=== PATIENT | female | born 1960 | race Caucasian/White ===

== ENCOUNTER → 2017-05-13 12:06 | Outpatient (CLI) | payer MEDICAID, SELFPAY ==
[2017-05-13 14:06] LABS: Hemoglobin A1c 5.2 % (4.2-6.3)
== END ==
PROVIDERS: Visit Provider Psychiatry & Neurology Neurology
DX: E11.9 Type 2 diabetes mellitus without complications (principal); R56.9 Unspecified convulsions
CPT/HCPCS: 36415; 83036

== ENCOUNTER → 2017-11-10 12:48 | Outpatient (CLI) | payer MEDICAID, SELFPAY ==
[2017-11-10 13:23] LABS: Absolute Lymphocyte Count 0.95 X10^3/ul (0.83-4.51); Basophil# 0.02 X10^3/uL; Basophil% 0.4 % (0-1); Eosinophils% 2.2 % (0-5); Hematocrit 40.8 % (37-47); Hemoglobin 13.5 g/dl (12.0-15.0); Lymphocyte # 0.95 X10^3/ul (4.0); Lymphocyte % 21.3 % (19-41); Mean Corp Hgb Conc 33.1 g/gl (32-36); Mean Corpuscular Hgb 29.7 pg (27.0-32.0); Mean Corpuscular Volume 89.9 fL (81-99); Mean Platelet Vol. 9.4 fl (6.2-12.0); Monocyte# 0.36 X10^3/uL; Monocyte% 8.1 % (0-10); Neutrophil # 3.04 X10^3/uL (2.7-7.7); Platelet Count 160 K/mm3 (150-450); RBC Distribution Width CV 13.7 % (11.6-14.6); Red Blood Count 4.54 M/mm3 (4.2-5.4); White Blood Count 4.5 K/mm3 (4.4-11.0)
[2017-11-10 13:24] LABS: POSITIVE COUNT NO; POSITIVE DIFFERENTIAL NO; POSITIVE MORPHOLOGY NO
[2017-11-10 13:53] LABS: ALB/GLOB Ratio 1.1 RATIO (0.9-2.4); AST(SGOT) 17 U/L (15-37); Alanine Aminotransfer ALT/SGPT 26 U/L (13-56); Albumin, Serum 3.9 g/dL (3.2-5.0); Alkaline Phosphatase 89 U/L (45-117); Anion Gap 9 (5-15); BUN 15 mg/dL (7-18); BUN/Creat Ratio 16.2 RATIO (10-20); Calcium,Total 9.1 mg/dL (8.5-10.1); Chloride 109 mmol/L (98-107); Creatinine, Serum 0.92 mg/dL (0.55-1.02); EST Glomerular Filtration Rate 66 mL/min (>60); Est Glom Filt Rate - Afr Amer 80 mL/min (>60); Globulin 3.4 g/dL (2.2-4.2); Glucose 121 mg/dL (74-106); Potassium 3.7 mmol/L (3.5-5.1); Protein, Total 7.3 g/dL (6.4-8.2); Sodium Level 143 mmol/L (136-145)
== END ==
PROVIDERS: Visit Provider Psychiatry & Neurology Neurology
DX: R56.9 Unspecified convulsions (principal)
CPT/HCPCS: 36415; 80053; 85025

== ENCOUNTER → 2018-02-16 12:53 | Outpatient (CLI) | payer MEDICAID, SELFPAY ==
[2018-02-19 11:43] LABS: Lamotrigine (Lamictal) Level 15.3 ug/mL (2.0-20.0)
== END ==
DX: G40.119 Localization-related (focal) (partial) symptomatic epilepsy and epileptic syndromes with simple partial seizures, intractable, without status epilepticus (principal)
CPT/HCPCS: 36415; 82542

== ENCOUNTER → 2018-03-18 15:57 | Outpatient (CLI) | payer MEDICAID, SELFPAY ==
[2017-07-24 09:52] VITALS: BMI 37.3
--- NOTE | 2018-03-18 16:01 | RAD_ITS ---
STUDY: X-RAY CHEST REASON FOR EXAM: Female, 58 years old. Persistent basilar TECHNIQUE: 2 view COMPARISON: None. FINDINGS: The lungs are clear and expanded. There is no demonstrated pleural abnormality. Normal size heart. Normal mediastinum and mariya. Normal visualized pulmonary arteries. Normal visualized aortic arch and descending thoracic aorta. Degenerative changes of the thoracic spine. Normal visualized ribs, clavicles, and shoulders. There is no demonstrated abnormality of the visualized soft tissue structures of the upper abdomen. RAD/Chest PA and Lateral IMPRESSION: Normal x-ray examination of the chest. No acute findings in the lungs Electronically Signed: Eric Kumar MD at 7:08 EST Tel , Service support ,
[2018-03-18 16:15] LABS: Mucous, Urine 0 SEEN /hpf (<or=2+); Red Blood Cells-Urine 0 SEEN /hpf (0-5)
[2018-03-18 17:54] LABS: Absolute Lymphocyte Count 1.09 X10^3/ul (0.83-4.51); Absolute Neutrophil Count 3.4 X10^3/uL (2.0-7.7); Basophil# 0.02 X10^3/uL; Basophil% 0.4 % (0-1); Hematocrit 41.4 % (37-47); Hemoglobin 13.8 g/dl (12.0-15.0); Lymphocyte # 1.09 X10^3/ul (4.0); Lymphocyte % 21.8 % (19-41); Mean Corp Hgb Conc 33.3 g/gl (32-36); Mean Corpuscular Hgb 29.6 pg (27.0-32.0); Mean Corpuscular Volume 88.8 fL (81-99); Monocyte# 0.36 X10^3/uL; Monocyte% 7.2 % (0-10); Neutrophil # 3.43 X10^3/uL (2.7-7.7); Neutrophil % 68.4 % (47-70); Platelet Count 172 K/mm3 (150-450); Red Blood Count 4.66 M/mm3 (4.2-5.4)
[2018-03-18 17:55] LABS: POSITIVE COUNT NO; POSITIVE DIFFERENTIAL NO; POSITIVE MORPHOLOGY NO
[2018-03-18 18:15] LABS: ALB/GLOB Ratio 1.1 RATIO (0.9-2.4); AST(SGOT) 16 U/L (15-37); Alanine Aminotransfer ALT/SGPT 33 U/L (13-56); Albumin, Serum 3.9 g/dL (3.2-5.0); Alkaline Phosphatase 100 U/L (45-117); Anion Gap 11 (5-15); BUN 11 mg/dL (7-18); BUN/Creat Ratio 13.5 RATIO (10-20); Calcium,Total 9.4 mg/dL (8.5-10.1); Chloride 108 mmol/L (98-107); Cholesterol 266 mg/dL (200); Creatinine, Serum 0.81 mg/dL (0.55-1.02); EST Glomerular Filtration Rate 76 mL/min (>60); Est Glom Filt Rate - Afr Amer 93 mL/min (>60); Globulin 3.5 g/dL (2.2-4.2); Glucose 94 mg/dL (74-106); High Density Lipoprotein 74 mg/dL; Potassium 3.8 mmol/L (3.5-5.1); Protein, Total 7.4 g/dL (6.4-8.2); Sodium Level 144 mmol/L (136-145); Thyroid Stim Hormone (TSH) 0.67 uIU/mL (0.358-3.74); Triglycerides 186 mg/dL; Very Low Density Lipoprotein 37 mg/dL (5-40)
[2018-03-18 18:26] LABS: Color, Urine Yellow (Yellow); Glucose, Dipstick Normal (Normal); Ketone-Dipstick Negative (Negative); Leukocyte Esterase-Dipstick 500 /ul (Negative); Nitrite-Dipstick Negative (Negative); Occult Blood-Urine 25 /ul (Negative); Protein-Dipstick Negative (Negative); Urine Bilirubin Dipstick Negative (Negative); Urine Clarity Cloudy (Clear); Urine Urobilinogen Normal (Normal)
[2018-03-18 18:57] LABS: Hyaline Cast 0-5 SEEN /lpf (0-5)
[2018-03-18 18:58] LABS: Bacteria 1+ /hpf (None Seen); Squamous Epithelial Cells - UA 5-10 SEEN /hpf (5-10); White Blood Cells 0-5 SEEN /hpf (0-5)
== END ==
PROVIDERS: Family Provider Family Medicine; PCP Family Medicine; Referring Provider Family Medicine; Visit Provider Family Medicine
DX: J45.30 Mild persistent asthma, uncomplicated (principal); E78.5 Hyperlipidemia, unspecified; E66.9 Obesity, unspecified; Z72.0 Tobacco use
CPT/HCPCS: 71046; 80053; 80061; 81001; 84443; 85025

== ENCOUNTER → 2018-03-24 06:35 | Outpatient (CLI) | payer MEDICAID, SELFPAY ==
[2017-07-24 09:52] VITALS: BMI 37.3
--- NOTE | 2018-03-24 15:31 | PFTCOMP ---
COMPLETE PULMONARY FUNCTION TEST INTERPRETATION Brief HPI: Patient is a 58 year old female, currently under the care of Dr. Rod, who presents to [facility] for complete pulmonary function tests secondary to diagnosis of asthma. Respiratory therapist reports good effort and reproducible results. Interpretation: Forced expiration spirometry shows no large airways obstructive ventilatory defect with an FEV1 of 95% predicted. There is no significant bronchodilator response by strict ATS criteria. Spirograms are of good quality and plateau normally. The respiratory flow volume loop shows a normal pattern. Lung volumes by body plethysmography show a normal total lung capacity at 4.61 L, 98% predicted. All other lung volumes are within normal limits. Diffusion capacity by carbon monoxide is normal at 106% predicted. The airway resistance is normal. No previous pulmonary function tests were available for review. Impression: These pulmonary function tests are within normal limits. Patient may have a bronchoprovocation study if quiescent asthma is a consideration.
== END ==
PROVIDERS: Family Provider Family Medicine; PCP Family Medicine
DX: J45.30 Mild persistent asthma, uncomplicated (principal)
CPT/HCPCS: 36415; 82542; 94060; 94726; 94729

== ENCOUNTER 2018-05-11 07:57 | Emergency (ER) | payer MEDICAID, SELFPAY ==
[2018-05-11 07:57] VITALS: BP 150/84; PULSE 105; RESP 20; TEMP 36.6; O2SAT 97; BMI 40.7
--- NOTE | 2018-05-11 08:15 | RAD_ITS ---
STUDY: X-RAY CHEST REASON FOR EXAM: Female, 58 years old. 3 month history of persistent cough and chest pain. TECHNIQUE: PA and lateral views of the chest. COMPARISON: Comparison is made with prior study dated March 18, 2018. FINDINGS: Hyperinflation. Scattered calcified granulomas. Stable mild increased markings at the lung bases suggestive mild bibasilar linear scarring. There is no demonstrated pleural abnormality. Normal size heart. Normal mediastinum and mariya. Normal visualized pulmonary arteries. Normal visualized aortic arch and descending thoracic aorta. There are diffuse degenerative changes of the visualized thoracic spine. Normal visualized ribs, clavicles, and shoulders. There is no demonstrated abnormality of the visualized soft tissue structures of the upper abdomen. RAD/Chest PA and Lateral IMPRESSION: Hyperinflation. Findings suggestive of mild degree of linear bibasilar scarring. Electronically Signed: Kevin Canales, at 8:51 EST , Service support ,
--- NOTE | 2018-05-11 08:16 | ED.VISSUMM ---
- ER Visit Summary Date of Service: 05/11/18 Chief Complaint: Cough History of Present Illness: The patient is a 58 F presenting with cough. Patient states she has had a cough for the past 3 months. This is keeping her awake at night. It is occasionally productive of sputum. She denies fever. She has shortness of breath associated with this. She denies chest pain. She has been seen by her primary care physician. She states that she was initially told that she had asthma and then later was told that she does not have asthma. She states that he wanted to prescribe her Prilosec and Flonase and she has refused both of these medications as she has tried them in the past with no relief. She states she has tried Tessalon Perles with no relief. She presents due to frustration and persistent cough. Physical Examination: Vitals are stable. Patient is afebrile. Alert no acute distress. HEENT exam is unremarkable. Neck is supple. Lungs are clear and equal bilaterally. Heart is regular rate and rhythm. Abdomen is soft nontender nondistended. Extremities are unremarkable. Skin is warm and dry. No focal neurologic deficit. Remainder of exam is unremarkable. Emergency Department Course and Treatment: Chest xray shows hyperinflation. Findings suggestive of mild degree of linear bibasilar scarring. She is given prescription for Delsym. She is advised to follow up with pulmonology for chronic cough. Advised return to ED if worsening complaints. Disposition: Discharge home Impression: Chronic cough This note was generated with [employer] dictation software. It may contain incorrect words, spelling, and punctuation that were not noted in review of the chart prior to signing ED Disposition - Plan for ED Patient: Instructions: ED URI Viral Prescriptions: Dextromethorphan Polistirex [Delsym] 30 mg PO BID PRN PRN 7 Days #1 [email or web address] PRN Reason: Cough Referrals: Myles Castillo DO [STAFF PHYSICIAN] - Houston Pascal MD [Primary Care Provider] -
--- NOTE | 2018-05-11 09:48 | ED.DEP ---
ED Disposition - Plan for ED Patient: Instructions: ED URI Viral Prescriptions: Dextromethorphan Polistirex [Delsym] 30 mg PO BID PRN PRN 7 Days #1 [email or web address] PRN Reason: Cough Referrals: Houston Pascal MD [Primary Care Provider] - Myles Castillo DO [STAFF PHYSICIAN] -
[2018-05-11 10:16] VITALS: PULSE 71; RESP 16; O2SAT 98
== END 2018-05-11 10:17 | disposition home or self-care (01) ==
LOC: ED 08:27
PROVIDERS: Emergency Provider Emergency Medicine; Family Provider Family Medicine; PCP Family Medicine
DX: R05 Cough (principal); G40.909 Epilepsy, unspecified, not intractable, without status epilepticus; Z79.899 Other long term (current) drug therapy
CPT/HCPCS: 71046; 99282

== ENCOUNTER → 2018-08-02 08:10 | Outpatient (CLI) | payer MEDICAID, SELFPAY ==
[2018-07-08 09:13] VITALS: BMI 41.8
--- NOTE | 2018-08-02 08:12 | CT_ITS ---
STUDY: CT CHEST WITHOUT CONTRAST REASON FOR EXAM: Female, 58 years old. Cough RADIATION DOSAGE (If Supplied By Facility): DLP = ( 689.75 ) mGycm TECHNIQUE: Transaxial imaging was performed without the administration of intravenous contrast material. Coronal and sagittal reformatted images were created. Individualized dose optimization techniques were used for this CT. COMPARISON: None FINDINGS: There are no pulmonary infiltrates or pleural effusions. There are no pulmonary nodules or masses. There is no pneumothorax. The heart and pericardium are within normal limits. There is no thoracic lymphadenopathy. There is no evidence of thoracic aortic aneurysm. There is decreased hepatic attenuation. There are no destructive osseous lesions. CT/Chest without Contrast IMPRESSION: No acute pathology in the chest. Fatty liver. Electronically Signed: Neo Mendez, at 21:49 EDT Tel , Service support ,
== END ==
PROVIDERS: Family Provider Family Medicine; PCP Family Medicine; Referring Provider Nurse Practitioner Acute Care; Visit Provider Nurse Practitioner Acute Care
DX: R05 Cough (principal)
CPT/HCPCS: 71250

== ENCOUNTER → 2018-08-03 09:25 | Outpatient (CLI) | payer MEDICAID, SELFPAY ==
[2018-07-08 09:13] VITALS: BMI 41.8
--- NOTE | 2018-08-04 08:28 | BRONCHALL ---
Bronchoprovocation Challenge - Bronchoprovocation Challenge Bronchoprovocation Challenge: INTRODUCTION: The patient is a 58-year-old female that presents for a methacholine challenge secondary to a diagnosis of chronic cough. Respiratory therapy reports no patient contraindications to testing. Of note, aerosolized albuterol was administered to the patient at the end of the test due to decreased air movement and faint audible wheezing noted. INTERPRETATION: Initial spirometry showed no evidence of a large airways obstructive ventilatory defect. Accordingly, the patient was given progressively increasing doses of methacholine in a standardized fashion. The largest change noted in the patient's FEV1 occurred at the highest dose level and was approximately 17%. This does not meet the threshold to be considered a positive test (20% decrease in FEV1). However, the patient was noted to have a positive response to the albuterol administered at the end of the challenge. IMPRESSION: While technically not a positive test, the patient was noted by the respiratory therapist to have decreased air movement and wheezing which responded favorably to the administration of albuterol. Negative methacholine challenge.
== END ==
PROVIDERS: Family Provider Family Medicine; PCP Family Medicine; Referring Provider Nurse Practitioner Acute Care; Visit Provider Nurse Practitioner Acute Care
DX: R05 Cough (principal)
CPT/HCPCS: 94070; 95070; J3490; J7674

== ENCOUNTER 2018-09-08 13:38 | Emergency (ER) | payer MEDICAID, SELFPAY ==
[2018-07-08 09:13] VITALS: BMI 41.8
[2018-09-08 13:38] VITALS: BP 121/73; PULSE 83; RESP 18; TEMP 36.6; O2SAT 96; BMI 41.4
[2018-09-08 13:44] VITALS: RESP 18
[2018-09-08] MEDS: Ondansetron ODT 4 MG Tablet 8 MG PO (14:12)
--- NOTE | 2018-09-08 14:30 | ED.VISSUMM ---
- ER Visit Summary Date of Service: 09/08/18 Chief Complaint: Nausea and vomiting History of Present Illness: The patient is a 58 F who complains of nausea and vomiting. She has had this for 1 week. She states vomiting multiple times per day. She denies any abdominal pain with this. No diarrhea or constipation. She denies urinary symptoms. She states that she cannot keep anything down. She has taken nothing for this at home. She denies any fevers. Physical Examination: Vital signs reviewed. HEENT exam unremarkable. Heart is regular rate and rhythm without murmurs. Lungs are clear to auscultation. Abdomen is soft and nontender. Extremities reveal no edema. Skin exam normal. Neurologic exam normal. Test Results: None performed Emergency Department Course and Treatment: The patient looks very well. Her vital signs are normal. I do not feel laboratory testing is necessary due to her lack of physical exam findings and normal vital signs. I gave her Zofran ODT. She is able to tolerate p.o. without any difficulties. Upon reevaluating her, it sounds like the patient is having some posttussive emesis due to a cough. She has been seeing pulmonology for this and has a follow-up appoint with him. I will give her Zofran ODT for home. She will follow-up with her PCP. Treatment Plan: [] Disposition: Discharge Impression: Vomiting This note was generated with [employer] dictation software. It may contain incorrect words, spelling, and punctuation that were not noted in review of the chart prior to signing ED Disposition - Plan for ED Patient: Referrals: Houston Pascal MD [Primary Care Provider] -
--- NOTE | 2018-09-08 14:32 | ED.DEP ---
ED Disposition - Plan for ED Patient: Disposition: Home or Assisted Living Instructions: VOMITING (5y-Adult) Prescriptions: Ondansetron [Zofran Odt] 4 mg PO Q8H PRN PRN #10 tab PRN Reason: Nausea Prescription Printed Referrals: Houston Pascal MD [Primary Care Provider] -
[2018-09-08 14:50] VITALS: BP 135/78; PULSE 97; RESP 18; O2SAT 95
== END 2018-09-08 14:51 | disposition home or self-care (01) ==
PROVIDERS: Emergency Provider Emergency Medicine; Family Provider Family Medicine; PCP Family Medicine
DX: R11.2 Nausea with vomiting, unspecified (principal); G40.909 Epilepsy, unspecified, not intractable, without status epilepticus; Z72.0 Tobacco use
CPT/HCPCS: 99283

== ENCOUNTER → 2019-01-14 12:46 | Outpatient (CLI) | payer MEDICARE, MEDICAID, SELFPAY ==
[2018-10-26 12:38] VITALS: BMI 40.4
--- NOTE | 2019-01-14 12:49 | BI_ITS ---
MAMMOGRAPHY - BILATERAL SCREENING REASON FOR EXAM: Female, 59 years old. Routine annual screening examination. PERTINENT HISTORY: Grandmother with breast cancer. Remote left excisional breast biopsy. TECHNIQUE: Digital bilateral breast tracey (3D mammographic acquisition) in the CC and MLO projections. 2-D mediolateral oblique (MLO) and craniocaudad (CC) views of both breasts were obtained. CAD: Full Field Digital Mammography with Computer Added Detection was performed. COMPARISON: Comparison is made with prior outside examination dated July 26, 2015 FINDINGS: Breast Composition: There are scattered areas of fibroglandular density. There are no dominant masses or suspicious calcifications. Benign appearing bilateral axillary lymph nodes. No other significant abnormalities are identified. There has been no significant change since the prior study. BI/SCREEN MAMM (CAD) W/TRACEY BILAT IMPRESSION: Stable bilateral screening mammogram. Yearly follow-up mammogram recommended. (A) ASSESSMENT CATEGORY: BIRADS Category 2: Benign. A letter regarding these results will be sent to the patient by the facility within 30 days. Approximately 10% of breast cancers are not detected by mammography. A normal mammogram should not delay biopsy of a clinically suspicious abnormality. [id number] Electronically Signed: Kevin Canales, at 8:23 EST , Service support ,
== END ==
PROVIDERS: Family Provider Family Medicine; PCP Family Medicine; Referring Provider Family Medicine; Visit Provider Family Medicine
DX: Z12.31 Encounter for screening mammogram for malignant neoplasm of breast (principal)
CPT/HCPCS: 77063; 77067

== ENCOUNTER → 2019-01-20 14:57 | Outpatient (CLI) | payer MEDICARE, MEDICAID, SELFPAY ==
[2018-10-26 12:38] VITALS: BMI 40.4
[2019-01-26 11:39] LABS: HPV Reflexed? NOT INDICATED
== END ==
PROVIDERS: Family Provider Family Medicine; PCP Family Medicine; Referring Provider Obstetrics & Gynecology; Visit Provider Obstetrics & Gynecology
DX: Z12.4 Encounter for screening for malignant neoplasm of cervix (principal)
CPT/HCPCS: 88175; G0145

== ENCOUNTER 2019-10-11 13:05 | Emergency (ER) | payer MEDICARE, MEDICAID, SELFPAY ==
[2018-10-26 12:38] VITALS: BMI 40.4
[2019-10-11 13:08] VITALS: BP 121/54; PULSE 59; RESP 16; TEMP 36.1; O2SAT 98; BMI 41.0
--- NOTE | 2019-10-11 14:04 | EKG12_ITS ---
Test Reason : Blood Pressure : / mmHG Vent. Rate : 063 BPM Atrial Rate : 063 BPM P-R Int : 176 ms QRS Dur : 088 ms QT Int : 422 ms P-R-T Axes : 036 075 049 degrees QTc Int : 431 ms Normal sinus rhythm Normal ECG Confirmed by ANA LAURA ROWELL ([id number]), acquisition editor GENEVIEVE EMERY ([id number] on 10/13/2019 11:16:04 AM Referred By: JUDITH Confirmed By:ANA LAURA ROWELL
--- NOTE | 2019-10-11 14:04 | CT_ITS ---
STUDY: CT ABDOMEN AND PELVIS WITH CONTRAST REASON FOR EXAM: Female, 59 years old. EPIGASTRIC PAIN, BACK PAIN, GERD, N/V, ASTHMA, POLYCYSTIC OVARIES, HLD, SZ RADIATION DOSAGE (If Supplied By Facility): CTDIvol = ( 13.75 ) mGy, DLP = ( 1185.56 ) mGycm TECHNIQUE: Transaxial images were obtained from the dome of the diaphragm to the symphysis pubis without oral contrast. 100 ML ISOVUE 300 was administered. Sagittal and coronal images were reconstructed. Individualized dose optimization techniques were used for this CT. COMPARISON: None. FINDINGS: Minimal increased markings at the lung bases suggestive of scarring. The visualized portions of the heart are within normal limits. There is decreased attenuation of the liver consistent with steatosis. Normal gallbladder and extrahepatic biliary system. Normal spleen. Normal pancreas. Normal bilateral adrenal glands. Normal right kidney. Punctate calcification in the midpole calyx of the left kidney. There is a small hiatal hernia. Normal small intestine. There are multiple colonic diverticula consistent with diverticulosis. The appendix is visualized and appears normal. There is diffuse atherosclerotic calcification of the abdominal aorta, without a demonstrated aneurysm. Normal inferior vena cava. Normal retroperitoneum. Normal urinary bladder. There is a right-sided inguinal hernia containing adipose tissue. There are degenerative changes of the visualized lumbar spine. CT/Abdomen/Pelvis W IV Cont ONLY IMPRESSION: Fatty infiltration of the liver. Sigmoid diverticulosis. Electronically Signed: Kevin Canales, at 15:47 EDT , Service support ,
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
[2019-10-11] MEDS: 0.9% Normal Saline 1,000 ML 1000 ML IV (14:29)
[2019-10-11 14:41] LABS: Absolute Lymphocyte Count 0.58 X10^3/uL (0.83-4.51); Absolute Neutrophil Count 8.5 X10^3/uL (2.0-7.7); Basophil# 0.03 X10^3/uL; Basophil% 0.3 % (0-1); Eosinophil# 0.01 X10^3/uL; Eosinophils% 0.1 % (0-5); Hematocrit 42.1 % (37-47); Hemoglobin 13.9 g/dL (12.0-15.0); Lymphocyte # 0.58 X10^3/ul (4.0); Lymphocyte % 6.1 % (19-41); Mean Corpuscular Volume 90.9 fL (81-99); Mean Platelet Vol. 9.3 fl (6.2-12.0); Monocyte# 0.36 X10^3/uL; Monocyte% 3.8 % (0-10); NRBC Flagged by Analyzer 0 % (0-5); Neutrophil # 8.45 X10^3/uL (2.7-7.7); Neutrophil % 89.2 % (47-70); POSITIVE DIFFERENTIAL YES; Platelet Count 191 K/mm3 (150-450); RBC Distribution Width CV 14.1 % (11.6-14.6); RBC Distribution Width SD 46.7 fl (35.1-43.9); Red Blood Count 4.63 M/mm3 (4.2-5.4); White Blood Count 9.5 K/mm3 (4.4-11.0)
[2019-10-11 14:43] LABS: Differential Indicated SCAN CRITERIA MET
[2019-10-11 14:59] LABS: ALB/GLOB Ratio 1.1 RATIO (0.9-2.4); AST(SGOT) 18 U/L (15-37); Alanine Aminotransfer ALT/SGPT 28 U/L (13-56); Albumin, Serum 3.8 g/dL (3.2-5.0); Alkaline Phosphatase 111 U/L (45-117); Anion Gap 5 (5-15); BUN 13 mg/dL (7-18); BUN/Creat Ratio 13.2 RATIO (10-20); Calcium,Total 9.2 mg/dL (8.5-10.1); Chloride 115 mmol/L (98-107); Creatinine, Serum 0.99 mg/dL (0.55-1.02); EST Glomerular Filtration Rate 61 mL/min (>60); Est Glom Filt Rate - Afr Amer 74 mL/min (>60); Estimated Creatinine Clearance 49.99 ml/min; Globulin 3.4 g/dL (2.2-4.2); Glucose 111 mg/dL (74-106); Lipase 61 U/L (73-393); Potassium 3.8 mmol/L (3.5-5.1); Protein, Total 7.2 g/dL (6.4-8.2); Sodium Level 146 mmol/L (136-145)
[2019-10-11 15:14] VITALS: BP 123/64; PULSE 54; RESP 18; O2SAT 99
[2019-10-11 16:18] LABS: Color, Urine Yellow (Yellow); Glucose, Dipstick Normal (Normal); Ketone-Dipstick Negative (Negative); Leukocyte Esterase-Dipstick 500 /ul (Negative); Nitrite-Dipstick Negative (Negative); Occult Blood-Urine 50 /ul (Negative); Protein-Dipstick 15 mg/dl (Negative); Urine Bilirubin Dipstick Negative (Negative); Urine Clarity Sl. Cloudy (Clear); Urine Urobilinogen Normal (Normal); Urine pH 6.5 (5.0 - 8.0)
[2019-10-11 16:33] LABS: Bacteria 2+ /hpf (None Seen); Calcium Oxalate Crystals Ur RARE /hpf (<or=2+); Mucous, Urine 1+ /hpf (<or=2+); Red Blood Cells-Urine 0-5 SEEN /hpf (0-5); Squamous Epithelial Cells - UA 0-5 SEEN /hpf (5-10); White Blood Cells 0-5 SEEN /hpf (0-5)
[2019-10-11] MEDS: Mag Hydrox/Al Hydrox/Simeth 30 ML UDC PO (16:36)
[2019-10-11 17:12] VITALS: BP 116/54; PULSE 75; RESP 18; O2SAT 98
== END 2019-10-11 17:13 | disposition home or self-care (01) ==
PROVIDERS: Emergency Provider Emergency Medicine; PCP Family Medicine
DX: K44.9 Diaphragmatic hernia without obstruction or gangrene (principal); R11.2 Nausea with vomiting, unspecified; K40.90 Unilateral inguinal hernia, without obstruction or gangrene, not specified as recurrent; M54.5 Low back pain; R10.13 Epigastric pain; F17.200 Nicotine dependence, unspecified, uncomplicated; E78.5 Hyperlipidemia, unspecified; Z79.899 Other long term (current) drug therapy; G40.909 Epilepsy, unspecified, not intractable, without status epilepticus
CPT/HCPCS: 74177; 80053; 81001; 83690; 84484; 85025; 87086; 87088; 93005; 96360; 99285; J7030; Q9967; A4216

== ENCOUNTER 2019-12-14 14:29 | Inpatient (IN) | payer MEDICARE, MEDICAID, SELFPAY ==
[2019-12-14 14:33] VITALS: BP 152/79; PULSE 101; RESP 18; TEMP 37.6; O2SAT 97
[2019-12-14 14:37] VITALS: BMI 39.4
[2019-12-14 14:43] VITALS: BMI 39.4
[2019-12-14] MEDS: lamoTRIgine 100 MG Tablet 200 MG PO (17:51)
--- NOTE | 2019-12-14 20:03 | PCM.HP.STD ---
Problem List (1) Debility Status: Acute (2) Fall Status: Acute (3) Left knee pain Status: Acute (4) Effusion, left knee Status: Acute (5) Cataract Status: Chronic (6) Seizure disorder Status: Chronic (7) GERD (gastroesophageal reflux disease) Status: Chronic (8) Hyperlipidemia Status: Chronic (9) Asthma Status: Chronic History of Present Illness Date of Admission: 12/14/19 Chief Complaint: Here for rehabilitation, strengthening, prior to discharge home alone. The patient is a 59 year old Female with past medical history of seizure disorder came to ED for evaluation of fall. Patient states she was going down the stairs, missed a step, and fell onto her left knee, scraped her right arm, and hit her head on the wall. She denies LOC, she has pain in her left knee and not able to bear any weight on her left knee. CT brain showed generalized atrophy, small vessel ischemic disease, no acute intracranial process identified. CT cervical spine showed multilevel degenerative change seen with the cervical spine, most severe at C5-C6, no acute cervical spine fracture identified. X-ray of lumbar spine showed scoliosis of lumbar spine, convex to left, with associated mild multilevel disc space narrowing and anterior osteophytes seen at multiple levels. Facet hypertrophic degenerative change is seen with the lower lumbar spine, no acute findings. X-ray of let knee showed arthritis, suprapatellar effusion, no acute fracture or dislocation identified. X-ray left hip showed osteoarthritis, no acute fracture or dislocation identified. Orthopedics recommended ice/elevation, weight bearing as tolerated, and PT/OT. 12/14/19 Admit to TCU with debility, here for rehabilitation, strengthening, prior to discharge home alone. Past Medical History Past Medical History (Chronic Problems): Chronic Problems (Last Reviewed 10/26/18 @ 12:56 by Mansi Jones) Cataract (Chronic) Seizure disorder (Chronic) GERD (gastroesophageal reflux disease) (Chronic) Allergic rhinitis (Chronic) Chronic cough (Chronic) Itching (Chronic) Hyperlipidemia (Chronic) Breast lump (Chronic) Cataracts, bilateral (Chronic) Back problem (Chronic) Cyst of ovary (Chronic) Right Vision problems (Chronic) Seizures (Chronic) Polycystic ovaries (Chronic) High cholesterol (Chronic) Hearing problem (Chronic) Chronic headaches (Chronic) Asthma (Chronic) Arthritis (Chronic) Medical History: Medical History (Last Reviewed 10/26/18 @ 12:56 by Mansi Jones) Breast lump (Chronic) N63.0 Cataracts, bilateral (Chronic) H26.9 Back problem (Chronic) M53.9 Cyst of ovary (Chronic) N83.209 Right Vision problems (Chronic) H54.7 Seizures (Chronic) R56.9 Polycystic ovaries (Chronic) E28.2 High cholesterol (Chronic) E78.00 Hearing problem (Chronic) H91.90 Chronic headaches (Chronic) R51 Asthma (Chronic) J45.909 Arthritis (Chronic) M19.90 Allergies No Known Allergies Allergy (Verified 10/11/19 13:10) Home Medications: Ambulatory Orders Medication Instructions Recorded lamotrigine 150 mg tablet 200 mg PO BID tab 07/24/17 clonazepam 0.5 mg tablet 0.5 mg PO QHS 10/26/18 zonisamide 100 mg capsule 400 mg PO QHS #60 cap 10/26/18 Acetaminophen 650 mg PO Q6H PRN PRN 12/14/19 Albuterol Sulfate [Albuterol 2 puff IH Q4H PRN PRN 12/14/19 Sulfate HFA] Clonazepam 0.5 mg PO DAILY PRN 12/14/19 Surgical History: - - Breast biopsy. 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 Paternal Family History: Family History (Last Reviewed 10/26/18 @ 12:57 by Mansi Jones) Brother Heart disease Son Ulcer History Items: Hypertension, - - Cataract. Review of Systems Constitutional: Denies: Chills, Fever, Weight Change HEENT: Denies: Head Aches, Sinus Congestion, Sinus Drainage Cardiovascular: Denies: Chest Pain, Palpitations Respiratory: Denies: Cough, Shortness of breath at rest, Sputum production Gastrointestinal: Denies: Abdominal Pain, Nausea, Vomiting Genitourinary: Denies: Dysuria Musculoskeletal: Reports: Joint Pain - Left knee., Joint swelling - Left knee., Joint Tenderness - Left knee. Skin: Denies: Rash, Wounds Neurological: Denies: Numbness, Tingling, Focal weakness Psychiatric: Denies: Anxiety, Depression, Homicidal Ideations, Suicidal Ideations Hematologic/ Lymphatic: Denies: Easy Bruising, Easy Bleeding VTE Information - Inpt Only VTE Present on Admission: No VTE Mechan Device Prophylaxis: Knee High RAGHAV Hose VTE Pharm Prophylaxis ordered?: No Reason prophylaxis not ordered:: Treatment Not Indicated Patient Problems: Active and Suspected Problems (Last Reviewed 10/26/18 @ 12:56 by Mansi Jones) Debility (Acute) Fall (Acute) Left knee pain (Acute) Effusion, left knee (Acute) - Physical Exam Vitals/I&O's: Vital Signs Temp Pulse Resp BP Pulse Ox 99.6 F H 101 H 18 152/79 H 97 12/14/19 14:33 12/14/19 14:33 12/14/19 14:33 12/14/19 14:33 12/14/19 14:33 Oxygen Delivery Method Room Air Weight: 100.839 kg Body Mass Index (BMI) 39.4 Intake and Output for Last 24 Hours 12/12/19 12/13/19 12/14/19 23:59 23:59 23:59 Intake Total 240 / 240 Balance 240 / 240 General: Alert, Oriented x3, Cooperative HEENT: Atraumatic, PERRLA, EOMI, Normocephalic Neck: Supple, No JVD, Negative Carotid Bruits Lungs: Clear to auscultation, Normal air movement Cardiovascular: Regular rate, No murmurs Abdomen: Bowel Sounds Present, Soft, Non Tender Extremities: No edema, Capillary Refill Less than 3 Seconds Skin: No rashes, No breakdown Musculoskeletal: - - Left knee tender, swollen. Neurological: Cranial nerves II-XII grossly intact Psych/Mental Status: Normal Affect, Appropriate Laboratory Results 12/14/19 15:25: COVID-19 (ROSEANN) Pending Current Medications Acetaminophen (Tylenol) 650 mg PO Q6H PRN PRN PRN Reason: Pain Score 1-10/10 Albuterol Sulfate (Ventolin Aerosols) 2.5 mg INHALATION Q4H PRN PRN PRN Reason: wheezing/SOB Clonazepam (Klonopin) 0.5 mg PO DAILY PRN PRN Reason: Prolonged Seizure Clonazepam (Klonopin) 0.5 mg PO QHS L[facility]AY Lamotrigine (Lamictal) 200 mg PO BID [facility] Last Admin: 12/14/19 17:51 Dose: 200 mg Documented by: Non-Formulary Medication (Zonisamide) 400 mg PO QHS LASHAY Tuberculin PPD (Tubersol, Aplisol, Ppd) 5 tu ID X1 ONE Stop: 12/15/19 10:01 Tuberculin PPD (Tubersol, Aplisol, Ppd) 5 tu ID X1 ONE Stop: 12/22/19 10:01 Assessment/Plan All Active Problems (Last Reviewed 10/26/18 @ 12:56 by Mansi Jones) Debility (Acute) Fall (Acute) Left knee pain (Acute) Effusion, left knee (Acute) Dyspnea (Acute) 59 year old female with below past medical history hospitalized for fall, complicated by left knee suprapatellar effusion, admitted to TCU with debility, here for rehabilitation, strengthening, prior to discharge home alone. Debility - PT/OT. Pain - Tylenol 1000MG Q6H PRN pain (1-10). Bowel - Miralax 17GM daily, Senna/colace 1 tablet BID, Dulcolax 10MG TN daily PRN. Adult immunization - Administer Fluzone as appropriate. DVT prophylaxis - Not necessary. Asthma - Albuterol 2.5MG nebulized Q4H PRN. Seizure disorder - Lamictal 200MG BID, Clonazepam 0.5MG daily PRN, Clonazepam 0.5MG QHS. Zonisamide (Formulary equivalent) 400MG QHS.
[2019-12-14] MEDS: Menthol/Lanolin/Calamine/Znox 113 GM Tube 1 APPLIC TOPICAL (21:21)
[2019-12-14] MEDS: Nystatin Powder 15gm Bottle 1 APPLIC TOPICAL (21:21)
[2019-12-14] MEDS: clonazePAM 0.5 MG Tablet PO (21:23)
[2019-12-14] MEDS: ZONISAMIDE 100 MG CAPSULE 400 MG PO (22:26)
[2019-12-15 05:33] LABS: Absolute Lymphocyte Count 1.31 X10^3/uL (0.83-4.51); Absolute Neutrophil Count 3.6 X10^3/uL (2.0-7.7); Basophil# 0.03 X10^3/uL; Basophil% 0.5 % (0-1); Eosinophil# 0.15 X10^3/uL; Eosinophils% 2.7 % (0-5); Hematocrit 37.6 % (37-47); Hemoglobin 12.2 g/dL (12.0-15.0); Lymphocyte # 1.31 X10^3/ul (4.0); Lymphocyte % 23.6 % (19-41); Mean Corp Hgb Conc 32.4 g/dL (32-36); Mean Corpuscular Hgb 30.2 pg (27.0-32.0); Mean Corpuscular Volume 93.1 fL (81-99); Mean Platelet Vol. 8.6 fl (6.2-12.0); Monocyte% 7.2 % (0-10); NRBC Flagged by Analyzer 0 % (0-5); Neutrophil # 3.64 X10^3/uL (2.7-7.7); Neutrophil % 65.6 % (47-70); Platelet Count 190 K/mm3 (150-450); RBC Distribution Width CV 13.7 % (11.6-14.6); RBC Distribution Width SD 46.7 fl (35.1-43.9); Red Blood Count 4.04 M/mm3 (4.2-5.4); White Blood Count 5.6 K/mm3 (4.4-11.0)
[2019-12-15 05:48] LABS: Anion Gap 6 (5-15); BUN 16 mg/dL (7-18); BUN/Creat Ratio 17.4 RATIO (10-20); Calcium,Total 8.7 mg/dL (8.5-10.1); Chloride 110 mmol/L (98-107); Creatinine, Serum 0.92 mg/dL (0.55-1.02); EST Glomerular Filtration Rate 66 mL/min (>60); Est Glom Filt Rate - Afr Amer 80 mL/min (>60); Estimated Creatinine Clearance 53.79 ml/min; Glucose 104 mg/dL (74-106); Potassium 3.8 mmol/L (3.5-5.1); Sodium Level 141 mmol/L (136-145)
[2019-12-15 06:31] VITALS: BP 114/58; PULSE 88; RESP 16; TEMP 36.9; O2SAT 95
[2019-12-15] MEDS: lamoTRIgine 100 MG Tablet 200 MG PO ×2 (06:33→17:48)
[2019-12-15] MEDS: Nystatin Powder 15gm Bottle 1 APPLIC TOPICAL ×2 (06:35→21:55)
[2019-12-15] MEDS: Menthol/Lanolin/Calamine/Znox 113 GM Tube 1 APPLIC TOPICAL ×2 (06:37→21:56)
[2019-12-15] MEDS: Tuberculin,Purif.prot.deriv. 50 TU/ML Vial 5 ML ID (10:58)
[2019-12-15 13:45] VITALS: BP 133/55; PULSE 79; RESP 17; TEMP 36.8; O2SAT 96
--- NOTE | 2019-12-15 14:55 | PCA ---
Has an upcoming appointment at [facility]. Received requested radiology reports from [facility] to send with patient on day of appointment. Per radiology [place] [facility] will deliver the hard disc to [facility]. Nursing aware
--- NOTE | 2019-12-15 15:07 | PHA.CONS_ITS ---
<Kalee Lawson - Last Filed: 12/15/19 15:07> Progress Note - Pharmacy Subjective: TCU Admission Objective: Allergies No Known Allergies Allergy (Verified 10/11/19 13:10) Current Medications Generic Name Dose Route Start Last Admin Trade Name Freq PRN Reason Stop Dose Admin Acetaminophen 1,000 mg 12/14/19 20:19 Tylenol PO Q6H PRN PRN Pain Score 1-12/23 Albuterol Sulfate 2.5 mg 12/14/19 14:43 Ventolin Aerosols INHALATION Q4H PRN PRN wheezing/SOB Bisacodyl 10 mg 12/14/19 20:19 Dulcolax RECTAL DAILY PRN Constipation Calamine/Phenol 1 applic 12/14/19 22:00 12/15/19 06:37 Calmoseptine Ointment TOPICAL 1 applicatio 0600,2200 [facility] Administration Protocol Clonazepam 0.5 mg 12/14/19 14:43 Klonopin PO DAILY PRN Prolonged Seizure Clonazepam 0.5 mg 12/14/19 22:00 12/14/19 21:23 Klonopin PO 0.5 mg QHS [facility] Administration Lamotrigine 200 mg 12/14/19 18:00 12/15/19 06:33 Lamictal PO 200 mg BID [facility] Administration Nystatin 1 applic 12/14/19 22:00 12/15/19 06:35 Mycostatin Powder TOPICAL 1 applicatio 0600,2200 [facility] Administration Protocol Polyethylene Glycol 17 gm 12/15/19 06:00 12/15/19 06:33 Miralax PO Not Given DAILY [facility] Senna/Docusate Sodium 1 tablet 12/15/19 06:00 12/15/19 06:33 Senokot-S, Olga-Colace PO Not Given BID [facility] Tuberculin PPD 5 tu 12/22/19 10:00 Tubersol, Aplisol, Ppd ID 12/22/19 10:01 X1 ONE Zonisamide 400 mg 12/15/19 22:00 Zonegran PO QHS [facility] Problem List (Last Reviewed 10/26/18 @ 12:56 by Mansi Jones) Debility (Acute) Fall (Acute) Left knee pain (Acute) Effusion, left knee (Acute) Cataract (Chronic) Seizure disorder (Chronic) GERD (gastroesophageal reflux disease) (Chronic) Vital Signs Temp Pulse Resp BP Pulse Ox 98.3 F 79 17 133/55 H 96 12/15/19 13:45 12/15/19 13:45 12/15/19 13:45 12/15/19 13:45 12/15/19 13:45 Oxygen Delivery Method Room Air Weight: 100.8 kg Body Mass Index (BMI) 39.4 Sodium 141 mmol/L (136-145) 12/15/19 05:15 Potassium 3.8 mmol/L (3.5-5.1) 12/15/19 05:15 Chloride 110 mmol/L (98-107) H 12/15/19 05:15 Carbon Dioxide 25.0 mmol/L (21.0-32.0) 12/15/19 05:15 Anion Gap 6 (5-15) 12/15/19 05:15 BUN 16 mg/dL (7-18) 12/15/19 05:15 Creatinine 0.92 mg/dL (0.55-1.02) 12/15/19 05:15 Est GFR (MDRD) Af Amer 80 mL/min (>60) 12/15/19 05:15 Est GFR (MDRD) Non-Af 66 mL/min (>60) 12/15/19 05:15 BUN/Creatinine Ratio 17.4 RATIO (-) 12/15/19 05:15 Glucose 104 mg/dL (74-106) 12/15/19 05:15 Assessment/Plan: 1. Pain: acetaminophen 1000mg PO Q6H PRN pain 1-12/23. Please continue to monitor for increased pain and PRN usage. 2. Asthma: albuterol inhalation 2.5mg nebulized Q4H PRN wheezing/sob. Please continue to monitor for wheezing/SOB and PRN usage. Psychotropic Medications: 1. Seizure disorder: lamotrigine 200mg PO BID, zonisamide 400mg PO QHS, and clonazepam 0.5mg PO QHS (and 0.5mg daily PRN prolonged seizure). GDR not recommended because clonazepam is being used for seizure control. Please continue to monitor for rash, somnolence, dizziness, and seizures. Unnecessary Medications: None Bowel Regimen: Miralax 17gm PO daily, senna/docusate 2T PO BID, and bisacodyl 10mg DE daily PRN constipation. Please continue to monitor for constipation and PRN usage. Date of Note:: 12/15/19 - Provider Comments Provider responsibility: Provider responsible to enter orders to implement recommendations <Rey [place] Chi - Last Filed: 12/15/19 17:57> Progress Note - Pharmacy Subjective: [] Objective: Allergies No Known Allergies Allergy (Verified 10/11/19 13:10) Current Medications Generic Name Dose Route Start Last Admin Trade Name Freq PRN Reason Stop Dose Admin Acetaminophen 1,000 mg 12/14/19 20:19 Tylenol PO Q6H PRN PRN Pain Score 1-12/23 Albuterol Sulfate 2.5 mg 12/14/19 14:43 Ventolin Aerosols INHALATION Q4H PRN PRN wheezing/SOB Bisacodyl 10 mg 12/14/19 20:19 Dulcolax RECTAL DAILY PRN Constipation Calamine/Phenol 1 applic 12/14/19 22:00 12/15/19 06:37 Calmoseptine Ointment TOPICAL 1 applicatio 0600,2200 [facility] Administration Protocol Clonazepam 0.5 mg 12/14/19 14:43 Klonopin PO DAILY PRN Prolonged Seizure Clonazepam 0.5 mg 12/14/19 22:00 12/14/19 21:23 Klonopin PO 0.5 mg QHS LASHAY Administration Lamotrigine 200 mg 12/14/19 18:00 12/15/19 17:48 Lamictal PO 200 mg BID LASHAY Administration Nystatin 1 applic 12/14/19 22:00 12/15/19 06:35 Mycostatin Powder TOPICAL 1 applicatio 0600,2200 [facility] Administration Protocol Polyethylene Glycol 17 gm 12/15/19 06:00 12/15/19 06:33 Miralax PO Not Given DAILY LASHAY Senna/Docusate Sodium 1 tablet 12/15/19 06:00 12/15/19 17:49 Senokot-S, Olga-Colace PO Not Given BID [facility] Tuberculin PPD 5 tu 12/22/19 10:00 Tubersol, Aplisol, Ppd ID 12/22/19 10:01 X1 ONE Zonisamide 400 mg 12/15/19 22:00 Zonegran PO QHS [facility] Problem List (Last Reviewed 10/26/18 @ 12:56 by Mansi Jones) Debility (Acute) Fall (Acute) Left knee pain (Acute) Effusion, left knee (Acute) Cataract (Chronic) Seizure disorder (Chronic) GERD (gastroesophageal reflux disease) (Chronic) Vital Signs Temp Pulse Resp BP Pulse Ox 98.3 F 79 17 133/55 H 96 12/15/19 13:45 12/15/19 13:45 12/15/19 13:45 12/15/19 13:45 12/15/19 13:45 Oxygen Delivery Method Room Air Weight: 100.8 kg Body Mass Index (BMI) 39.4 Sodium 141 mmol/L (136-145) 12/15/19 05:15 Potassium 3.8 mmol/L (3.5-5.1) 12/15/19 05:15 Chloride 110 mmol/L (98-107) H 12/15/19 05:15 Carbon Dioxide 25.0 mmol/L (21.0-32.0) 12/15/19 05:15 Anion Gap 6 (5-15) 12/15/19 05:15 BUN 16 mg/dL (7-18) 12/15/19 05:15 Creatinine 0.92 mg/dL (0.55-1.02) 12/15/19 05:15 Est GFR (MDRD) Af Amer 80 mL/min (>60) 12/15/19 05:15 Est GFR (MDRD) Non-Af 66 mL/min (>60) 12/15/19 05:15 BUN/Creatinine Ratio 17.4 RATIO (10-20) 12/15/19 05:15 Glucose 104 mg/dL (74-106) 12/15/19 05:15 Assessment/Plan: Psychotropic Medications: Unnecessary Medications: Bowel Regimen: - Provider Comments Provider responsibility: Provider responsible to enter orders to implement recommendations Provider Comments to Recommendations by Pharmacy: Agree
--- NOTE | 2019-12-15 15:20 | CASEMGMT ---
Social Work Discussed code status with pt. Pt confirmed full code. MOLST form reviewed and placed in chart. [place], POLICY MANAGER DISTRICT RECRUITER
--- NOTE | 2019-12-15 16:41 | NURSING ---
called son, no answer. left message.
[2019-12-15] MEDS: Acetaminophen 500 MG Tablet 1000 MG PO (20:38)
[2019-12-15] MEDS: Zonisamide 50 MG Capsule 400 MG PO (21:44)
[2019-12-15] MEDS: clonazePAM 0.5 MG Tablet PO (21:52)
[2019-12-15 21:55] VITALS: PULSE 88; RESP 16; O2SAT 98
[2019-12-16 05:00] VITALS: BP 110/55; PULSE 72; RESP 16; TEMP 36.8; O2SAT 95
[2019-12-16] MEDS: Nystatin Powder 15gm Bottle 1 APPLIC TOPICAL ×2 (05:32→21:32)
[2019-12-16] MEDS: lamoTRIgine 100 MG Tablet 200 MG PO ×2 (05:32→18:00)
[2019-12-16] MEDS: Menthol/Lanolin/Calamine/Znox 113 GM Tube 1 APPLIC TOPICAL ×2 (05:33→21:30)
--- NOTE | 2019-12-16 08:50 | NURSING ---
rn surgery icu reported that pt with urgency and frequency all night. Dr huntley updated, new order for UA C&S, started on Detrol LA.
[2019-12-16 10:00] VITALS: PULSE 95; RESP 16; O2SAT 97
--- NOTE | 2019-12-16 13:38 | CASEMGMT ---
Social Work Per therapy pt requesting to go home, team made aware and agreeable. Therapy recommending home PT/OT, FWW and 3 in 1 commode. SW met with pt in room and pt requesting to return home as soon as possible. Pt agreeable to d/c tomorrow, Saturday 12/16 and states her son can transport her. Pt also feels her son will be able to machine operator picker 3 in 1 commode and Wheeled walker at [facility]. Pt agreeable to home health care PT/OT with no preference on company used. Referral made to Kathy at [facility] and they are able to accept pt with start of date on Thursday. Pt aware and agreeable. Script to be faxed to [facility] when obtained. No further d/c needs. Plan: Home alone, with [facility] PT/OT LIZZIE Araya
--- NOTE | 2019-12-16 14:18 | DCINST_ITS ---
- Discharge Diagnoses Current Active Problems: Current Active and Chronic Problems (Last Reviewed 10/26/18 @ 12:56 by Mansi Jones) Debility (Acute) Fall (Acute) Left knee pain (Acute) Effusion, left knee (Acute) Cataract (Chronic) Seizure disorder (Chronic) GERD (gastroesophageal reflux disease) (Chronic) You will use the following diet at home:: No restrictions, Regular Your food should be the consistency of: Regular Your liquids should be the consistency of: Regular/Thin Discharge Activity: Return to Normal Activity, May Shower, Use Walker Weight Bearing Status: Weight bearing as tolerated Call your doctor if you observe: Fever of 101 or Higher, Inability to urinate, Inability to have a bowel movement, Shortness of breath, Chest pain, Calf discomfort, Uncontrolled pain Allergies/Adverse Reactions: Allergies No Known Allergies Allergy (Verified 10/11/19 13:10) Medications to take at Discharge lamotrigine 150 mg tablet 200 mg PO BID tab 07/24/17 clonazepam 0.5 mg tablet 0.5 mg PO QHS 10/26/18 zonisamide 100 mg capsule 400 mg PO QHS #60 cap 10/26/18 Albuterol Sulfate [Albuterol Sulfate HFA] 2 puff IH Q4H PRN PRN 12/14/19 Clonazepam 0.5 mg PO DAILY PRN 12/14/19 Acetaminophen [Tylenol] 1,000 mg PO Q6H PRN PRN tablet 12/16/19 Menthol/Lanolin/Calamine/Znox [Calmoseptine Ointment] 1 applic TOPICAL 0600,2200 tube 12/16/19 Nystatin Powder [Mycostatin Powder] 1 applic TOPICAL 0600,2200 bottle 12/16/19 Tolterodine Tartrate [Detrol LA] 4 mg PO QHS #30 cap.sa 12/16/19 The following prescriptions were given: Tolterodine Tartrate [Detrol LA] 4 mg PO QHS #30 cap.sa Transmission Status: Pending to [email or web address] #30 Primary Care Physician: Houston Pascal MD [Primary Care Provider] - Please follow up with your Primary Care Physician in: 1 week. Test Results: Test results from this visit will be discussed in further detail at your follow- up appointment, if applicable. Please Follow Up With: [facility] When: 1 Week Proposed Discharge Date: 12/17/19
--- NOTE | 2019-12-16 14:21 | DS.PCM_ITS ---
Discharge Date and Diagnosis - Problem List Patient Problems: Active and Suspected Problems (Last Reviewed 10/26/18 @ 12:56 by Mansi Jones) Debility (Acute) Fall (Acute) Left knee pain (Acute) Effusion, left knee (Acute) Date of Admission: 12/14/19 Date of Discharge: 12/17/19 - Primary Discharge Diagnosis Acute Problems: Active Problems (Last Reviewed 10/26/18 @ 12:56 by Mansi Jones) Debility (Acute) Fall (Acute) Left knee pain (Acute) Effusion, left knee (Acute) - Secondary Discharge Diagnosis Chronic Problems: Chronic Problems (Last Reviewed 10/26/18 @ 12:56 by Mansi Jones) Cataract (Chronic) Seizure disorder (Chronic) GERD (gastroesophageal reflux disease) (Chronic) Allergic rhinitis (Chronic) Chronic cough (Chronic) Itching (Chronic) Hyperlipidemia (Chronic) Breast lump (Chronic) Cataracts, bilateral (Chronic) Back problem (Chronic) Cyst of ovary (Chronic) Right Vision problems (Chronic) Seizures (Chronic) Polycystic ovaries (Chronic) High cholesterol (Chronic) Hearing problem (Chronic) Chronic headaches (Chronic) Asthma (Chronic) Arthritis (Chronic) Hospital Course and Treatment Imaging Results: 12/15/19 14:29 Diet: Cardiac - Heart Healthy Food consistency:: Regular Liquid Consistency:: Regular/Thin Is pt able to select menu?: Yes Labs (Last 48 Hours) 12/14/19 12/15/19 12/15/19 15:25 05:15 05:15 WBC 5.6 RBC 4.04 L Hgb 12.2 Hct 37.6 MCV 93.1 MCH 30.2 MCHC 32.4 RDW Std Deviation 46.7 H RDW Coeff of Rudi 13.7 Plt Count 190 MPV 8.6 Immature Gran % (Auto) 0.400 Neut % (Auto) 65.6 Lymph % (Auto) 23.6 Terrell % (Auto) 7.2 Eos % (Auto) 2.7 Baso % (Auto) 0.5 Absolute Neuts (auto) 3.6 Absolute Lymphs (auto) 1.31 Nucleated RBC % 0 Sodium 141 Potassium 3.8 Chloride 110 H Carbon Dioxide 25.0 Anion Gap 6 BUN 16 Creatinine 0.92 Estim Creat Clear Calc 53.79 Est GFR (MDRD) Af Amer 80 Est GFR (MDRD) Non-Af 66 BUN/Creatinine Ratio 17.4 Glucose 104 Calcium 8.7 COVID-19 (ROSEANN) Pending Operations: None Procedures: None Summary of Care Provided: The patient is a 59 year old Female with below past medical history hospitalized for fall, complicated by left knee suprapatellar effusion, admitted to TCU with debility, here for rehabilitation, strengthening, prior to discharge home alone. On TCU, Tolterodine 4MG QHS added for overactive bladder, consider stopping as outpatient. Discharge home alone, [facility] PT/OT. Patient Problems: Active and Suspected Problems (Last Reviewed 10/26/18 @ 12:56 by Mansi Jones) Debility (Acute) Fall (Acute) Left knee pain (Acute) Effusion, left knee (Acute) - Physical Exam Vitals/I&O's: Vital Signs Temp Pulse Resp BP Pulse Ox 98.2 F 95 16 110/55 L 97 12/16/19 05:00 12/16/19 10:00 12/16/19 10:00 12/16/19 05:00 12/16/19 10:00 Oxygen Delivery Method Room Air Weight: 100.8 kg Body Mass Index (BMI) 39.4 Intake and Output for Last 24 Hours 12/14/19 12/15/19 12/16/19 23:59 23:59 23:59 Intake Total 240 / 240 960 / 960 700 / 700 Balance 240 / 240 960 / 960 700 / 700 Current Medications Acetaminophen (Tylenol) 1,000 mg PO Q6H PRN PRN PRN Reason: Pain Score 1-10/10 Last Admin: 12/15/19 20:38 Dose: 1,000 mg Documented by: Albuterol Sulfate (Ventolin Aerosols) 2.5 mg INHALATION Q4H PRN PRN PRN Reason: wheezing/SOB Bisacodyl (Dulcolax) 10 mg RECTAL DAILY PRN PRN Reason: Constipation Calamine/Phenol (Calmoseptine Ointment) 1 applic TOPICAL 0600,2200 [facility]; Protocol Last Admin: 12/16/19 05:33 Dose: 1 applicatio Documented by: Clonazepam (Klonopin) 0.5 mg PO DAILY PRN PRN Reason: Prolonged Seizure Clonazepam (Klonopin) 0.5 mg PO QHS [facility] Last Admin: 12/15/19 21:52 Dose: 0.5 mg Documented by: Lamotrigine (Lamictal) 200 mg PO BID [facility] Last Admin: 12/16/19 05:32 Dose: 200 mg Documented by: Nystatin (Mycostatin Powder) 1 applic TOPICAL 0600,2200 [facility]; Protocol Last Admin: 12/16/19 05:32 Dose: 1 applicatio Documented by: Polyethylene Glycol (Miralax) 17 gm PO DAILY [facility] Last Admin: 12/16/19 05:32 Dose: Not Given Documented by: Senna/Docusate Sodium (Senokot-S, Olga-Colace) 1 tablet PO BID [facility] Last Admin: 12/16/19 05:32 Dose: Not Given Documented by: Tolterodine Tartrate (Detrol La) 4 mg PO QHS [facility] Tuberculin PPD (Tubersol, Aplisol, Ppd) 5 tu ID X1 ONE Stop: 12/22/19 10:01 Zonisamide (Zonegran) 400 mg PO QHS [facility] Last Admin: 12/15/19 21:44 Dose: 400 mg Documented by: Discharge Diet: No Restrictions Discharge Activity: Return to Normal Activity, May Shower, Use Walker Weight Bearing Status: Weight bearing as tolerated Call your doctor if you observe: Fever of 101 or Higher, Inability to urinate, Inability to have a bowel movement, Shortness of breath, Chest pain, Calf discomfort, Uncontrolled pain Home Medications: Medications to take at Discharge lamotrigine 150 mg tablet 200 mg PO BID tab 07/24/17 clonazepam 0.5 mg tablet 0.5 mg PO QHS 10/26/18 zonisamide 100 mg capsule 400 mg PO QHS #60 cap 10/26/18 Albuterol Sulfate [Albuterol Sulfate HFA] 2 puff IH Q4H PRN PRN 12/14/19 Clonazepam 0.5 mg PO DAILY PRN 12/14/19 Acetaminophen [Tylenol] 1,000 mg PO Q6H PRN PRN tablet 12/16/19 Menthol/Lanolin/Calamine/Znox [Calmoseptine Ointment] 1 applic TOPICAL 0600,2200 tube 12/16/19 Nystatin Powder [Mycostatin Powder] 1 applic TOPICAL 0600,2200 bottle 12/16/19 Tolterodine Tartrate [Detrol LA] 4 mg PO QHS #30 cap.sa 12/16/19 Following Prescriptions Were Given to Patient: Tolterodine Tartrate [Detrol LA] 4 mg PO QHS #30 cap.sa Transmission Status: Pending to [employer] #30 Primary Care Physician: Houston Pascal MD [Primary Care Provider] - Please follow up with your Primary Care Physician in: 1 week. Please Follow Up With: [facility] When: 1 Week Disposition: Home with Home Health Minutes spent on discharge:: 35 Patient Condition:: Stable Medical Necessity - Tobacco Use Smoking Status: Light Smoker (<10/day) Tobacco Use: Cigarettes Meaningful Use Info Meaningful Use Diagnoses (Choose all that apply): None applicable
[2019-12-16 16:00] VITALS: BP 113/56; PULSE 82; RESP 16; TEMP 36.6; O2SAT 96
[2019-12-16 17:40] LABS: Mucous, Urine 0 SEEN /hpf (<or=2+); Red Blood Cells-Urine 0 SEEN /hpf (0-5); White Blood Cells 0 SEEN /hpf (0-5)
[2019-12-16 18:32] LABS: Color, Urine Yellow (Yellow); Glucose, Dipstick Normal (Normal); Ketone-Dipstick Negative (Negative); Leukocyte Esterase-Dipstick Negative /ul (Negative); Nitrite-Dipstick Negative (Negative); Occult Blood-Urine 10 /ul (Negative); Protein-Dipstick Negative (Negative); Specific Gravity, Urine 1.015 (1.002-1.030); Urine Bilirubin Dipstick Negative (Negative); Urine Clarity Clear (Clear); Urine Urobilinogen Normal (Normal); Urine pH 6.5 (5.0 - 8.0)
[2019-12-16 18:49] LABS: Squamous Epithelial Cells - UA 0-5 SEEN /hpf (5-10)
[2019-12-16 18:50] LABS: Bacteria 1+ /hpf (None Seen)
[2019-12-16] MEDS: Zonisamide 50 MG Capsule 400 MG PO (21:30)
[2019-12-16] MEDS: Tolterodine Tartrate 4 MG CAP.SA PO (21:32)
[2019-12-16] MEDS: clonazePAM 0.5 MG Tablet PO (21:35)
[2019-12-16] MEDS: Acetaminophen 500 MG Tablet 1000 MG PO (21:38)
[2019-12-17 05:00] VITALS: BP 120/55; PULSE 84; RESP 18; TEMP 36.7; O2SAT 93
[2019-12-17] MEDS: lamoTRIgine 100 MG Tablet 200 MG PO (06:17)
[2019-12-17] MEDS: Nystatin Powder 15gm Bottle 1 APPLIC TOPICAL (06:18)
[2019-12-17] MEDS: Menthol/Lanolin/Calamine/Znox 113 GM Tube 1 APPLIC TOPICAL (06:19)
[2019-12-17 09:56] VITALS: PULSE 80; RESP 16; O2SAT 97
[2019-12-17 14:02] VITALS: BP 118/62; PULSE 70; RESP 16; TEMP 36.8; O2SAT 94
[2019-12-17] MEDS: Acetaminophen 500 MG Tablet 1000 MG PO (14:06)
[2019-12-17 14:20] VITALS: BP 118/62; PULSE 70; RESP 16; TEMP 36.8; O2SAT 94
--- NOTE | 2019-12-17 18:40 | NURSING ---
Notified pt of medications she left on our unit. She stated she would have her son pick them up tomorrow.
--- NOTE | 2019-12-27 08:29 | MDS.RN ---
Information for the mds was obtained from review of the clinical record, interview of resident, staff, and direct observation of resident's care.
== END 2019-12-17 16:30 | disposition home health service (06) | DRG 566 ==
PROVIDERS: Admitting Provider Family Medicine Geriatric Medicine; PCP Family Medicine; Visit Provider Family Medicine Geriatric Medicine
DX: M25.462 Effusion, left knee (principal); G40.909 Epilepsy, unspecified, not intractable, without status epilepticus; J45.909 Unspecified asthma, uncomplicated; K21.9 Gastro-esophageal reflux disease without esophagitis; E78.5 Hyperlipidemia, unspecified; M19.90 Unspecified osteoarthritis, unspecified site; F17.210 Nicotine dependence, cigarettes, uncomplicated; M41.86 Other forms of scoliosis, lumbar region
CPT/HCPCS: 36415; 80048; 81001; 85025; 87086; 87635; 97110; 97116; 97162; 97166; 97530; 97535; 97802; 99406; U0003

== ENCOUNTER → 2020-01-18 14:39 | Outpatient (CLI) | payer MEDICARE, MEDICAID, SELFPAY ==
[2020-01-18 17:29] LABS: Absolute Lymphocyte Count 1.36 X10^3/uL (0.83-4.51); Absolute Neutrophil Count 3.8 X10^3/uL (2.0-7.7); Basophil# 0.03 X10^3/uL; Basophil% 0.5 % (0-1); Eosinophil# 0.07 X10^3/uL; Eosinophils% 1.2 % (0-5); Hematocrit 43.1 % (37-47); Hemoglobin 13.8 g/dL (12.0-15.0); Lymphocyte # 1.36 X10^3/ul (4.0); Mean Corpuscular Hgb 29.3 pg (27.0-32.0); Mean Corpuscular Volume 91.5 fL (81-99); Mean Platelet Vol. 9.1 fl (6.2-12.0); Monocyte# 0.37 X10^3/uL; Monocyte% 6.5 % (0-10); NRBC Flagged by Analyzer 0 % (0-5); Neutrophil # 3.82 X10^3/uL (2.7-7.7); Neutrophil % 67.6 % (47-70); Platelet Count 207 K/mm3 (150-450); RBC Distribution Width CV 13.8 % (11.6-14.6); RBC Distribution Width SD 46.8 fl (35.1-43.9); Red Blood Count 4.71 M/mm3 (4.2-5.4); White Blood Count 5.7 K/mm3 (4.4-11.0)
[2020-01-18 18:03] LABS: ALB/GLOB Ratio 1.1 RATIO (0.9-2.4); AST(SGOT) 18 U/L (15-37); Alanine Aminotransfer ALT/SGPT 27 U/L (13-56); Alkaline Phosphatase 154 U/L (45-117); Anion Gap 7 (5-15); BUN 14 mg/dL (7-18); BUN/Creat Ratio 14.2 RATIO (10-20); Calcium,Total 9.2 mg/dL (8.5-10.1); Chloride 111 mmol/L (98-107); Cholesterol 284 mg/dL (200); Creatinine, Serum 0.98 mg/dL (0.55-1.02); EST Glomerular Filtration Rate 61 mL/min (>60); Est Glom Filt Rate - Afr Amer 74 mL/min (>60); Globulin 3.7 g/dL (2.2-4.2); Glucose 94 mg/dL (74-106); High Density Lipoprotein 65 mg/dL; Potassium 3.8 mmol/L (3.5-5.1); Protein, Total 7.7 g/dL (6.4-8.2); Sodium Level 142 mmol/L (136-145); Triglycerides 180 mg/dL; Very Low Density Lipoprotein 36 mg/dL (5-40)
== END ==
PROVIDERS: PCP Family Medicine; Referring Provider Family Medicine; Visit Provider Family Medicine
DX: E78.5 Hyperlipidemia, unspecified (principal); Z72.0 Tobacco use
CPT/HCPCS: 36415; 80053; 80061; 85025

== ENCOUNTER → 2020-02-14 | Outpatient (CLI) | payer MEDICARE, MEDICAID, SELFPAY | END | disposition home or self-care (01) | LOC: LABSPEC 12:21 | PROVIDERS: PCP Family Medicine; Visit Provider Family Medicine | DX: J06.9 Acute upper respiratory infection, unspecified (principal) | CPT/HCPCS: 87635; U0003 ==

== ENCOUNTER → 2020-04-18 14:31 | Outpatient (CLI) | payer MEDICARE, MEDICAID, SELFPAY ==
[2020-04-18 17:47] LABS: Absolute Lymphocyte Count 1.11 X10^3/uL (0.83-4.51); Absolute Neutrophil Count 3.7 X10^3/uL (2.0-7.7); Basophil# 0.02 X10^3/uL; Basophil% 0.4 % (0-1); Eosinophil# 0.04 X10^3/uL; Eosinophils% 0.8 % (0-5); Hematocrit 42.2 % (37-47); Hemoglobin 13.7 g/dL (12.0-15.0); Lymphocyte # 1.11 X10^3/ul (4.0); Lymphocyte % 21.6 % (19-41); Mean Corp Hgb Conc 32.5 g/dL (32-36); Mean Corpuscular Hgb 29.3 pg (27.0-32.0); Mean Corpuscular Volume 90.4 fL (81-99); Mean Platelet Vol. 9.4 fl (6.2-12.0); Monocyte# 0.27 X10^3/uL; Monocyte% 5.2 % (0-10); NRBC Flagged by Analyzer 0 % (0-5); Neutrophil % 71.8 % (47-70); Platelet Count 186 K/mm3 (150-450); RBC Distribution Width SD 46.5 fl (35.1-43.9); Red Blood Count 4.67 M/mm3 (4.2-5.4); White Blood Count 5.2 K/mm3 (4.4-11.0)
[2020-04-18 17:48] LABS: Color, Urine Yellow (Yellow); Glucose, Dipstick Normal (Normal); Ketone-Dipstick Negative (Negative); Leukocyte Esterase-Dipstick 500 /ul (Negative); Nitrite-Dipstick Negative (Negative); Occult Blood-Urine 50 /ul (Negative); Protein-Dipstick Negative (Negative); Urine Bilirubin Dipstick Negative (Negative); Urine Clarity Cloudy (Clear); Urine Urobilinogen 1 mg/dl (Normal)
[2020-04-18 17:56] LABS: Hyaline Cast 0-5 SEEN /lpf (0-5)
[2020-04-18 17:58] LABS: Bacteria 3+ /hpf (None Seen); Calcium Oxalate Crystals Ur 1+ /hpf (<or=2+); Squamous Epithelial Cells - UA 10-25 SEEN /hpf (5-10); White Blood Cells 10-25 SEEN /hpf (0-5)
[2020-04-18 18:00] LABS: Red Blood Cells-Urine 0-5 SEEN /hpf (0-5); Transitional Epithelial - Ur 0-5 SEEN /hpf (0-5)
[2020-04-18 18:01] LABS: Mucous, Urine 1+ /hpf (<or=2+)
[2020-04-18 18:08] LABS: ALB/GLOB Ratio 1.2 RATIO (0.9-2.4); AST(SGOT) 16 U/L (15-37); Alanine Aminotransfer ALT/SGPT 23 U/L (13-56); Alkaline Phosphatase 144 U/L (45-117); Anion Gap 7 (5-15); BUN 15 mg/dL (7-18); BUN/Creat Ratio 15.2 RATIO (10-20); Calcium,Total 8.9 mg/dL (8.5-10.1); Chloride 112 mmol/L (98-107); Cholesterol 177 mg/dL (200); Creatinine, Serum 0.99 mg/dL (0.55-1.02); EST Glomerular Filtration Rate 61 mL/min (>60); Est Glom Filt Rate - Afr Amer 74 mL/min (>60); Globulin 3.4 g/dL (2.2-4.2); Glucose 109 mg/dL (74-106); High Density Lipoprotein 73 mg/dL; Potassium 3.2 mmol/L (3.5-5.1); Protein, Total 7.4 g/dL (6.4-8.2); Sodium Level 142 mmol/L (136-145); Triglycerides 115 mg/dL; Very Low Density Lipoprotein 23 mg/dL (5-40)
== END ==
PROVIDERS: PCP Family Medicine; Referring Provider Family Medicine; Visit Provider Family Medicine
DX: E78.5 Hyperlipidemia, unspecified (principal); Z72.0 Tobacco use; R73.09 Other abnormal glucose
CPT/HCPCS: 36415; 80053; 80061; 81001; 83036; 85025

== ENCOUNTER → 2021-02-18 17:46 | Outpatient (CLI) | payer MEDICARE, MEDICAID, SELFPAY | PROVIDERS: PCP Family Medicine; Referring Provider Family Medicine; Visit Provider Family Medicine | DX: B34.9 Viral infection, unspecified (principal) | CPT/HCPCS: 87635; U0005; U0003 ==

== ENCOUNTER 2021-04-22 13:33 | Outpatient (CLI) | payer MEDICARE, MEDICAID, SELFPAY ==
--- NOTE | 2021-04-22 13:37 | RAD_ITS ---
STUDY: X-RAY CHEST REASON FOR EXAM: Female, 61 years old. ACUTE BRONCHITIS TECHNIQUE: PA and lateral views of the chest. COMPARISON: 05/11/2018 FINDINGS: Stable mild linear changes in the left base, bronchial prominence in the right base, areas of hyperinflation in the upper and mid lung parenchyma. There is no focal parenchymal abnormality. There is no demonstrated pleural abnormality. Normal size heart. Normal mediastinum and mariya. Normal visualized pulmonary arteries. Normal visualized aortic arch and descending thoracic aorta. There are diffuse degenerative changes of the visualized thoracic spine. Normal visualized ribs, clavicles, and shoulders. There is no demonstrated abnormality of the visualized soft tissue structures of the upper abdomen. RAD/Chest PA and Lateral IMPRESSION: Chronic-appearing interstitial lung disease, component of COPD and scarring suspected. No pulmonary edema, congestive heart failure or confluent pneumonia. Electronically Signed: Corin Ellis MD at 4:00 EST Reading Location ID and State: , Service support ,
== END 2021-04-22 23:59 | disposition home or self-care (01) ==
LOC: MTRAD 13:35
PROVIDERS: PCP Family Medicine; Referring Provider Family Medicine; Visit Provider Family Medicine
DX: J20.9 Acute bronchitis, unspecified (principal)
CPT/HCPCS: 71046

== ENCOUNTER → 2021-08-01 | Outpatient (CLI) | payer MEDICARE, MEDICAID, SELFPAY ==
[2021-08-01 10:23] LABS: Color, Urine Yellow (Yellow); Glucose, Dipstick Normal (Normal); Ketone-Dipstick Negative (Negative); Leukocyte Esterase-Dipstick 500 /ul (Negative); Nitrite-Dipstick Negative (Negative); Occult Blood-Urine 50 /ul (Negative); Protein-Dipstick 15 mg/dl (Negative); Specific Gravity, Urine 1.025 (1.002-1.030); Urine Bilirubin Dipstick Negative (Negative); Urine Clarity Cloudy (Clear); Urine Urobilinogen Normal (Normal)
[2021-08-01 10:24] LABS: Absolute Lymphocyte Count 1.22 X10^3/uL (0.83-4.51); Absolute Neutrophil Count 3.1 X10^3/uL (2.0-7.7); Basophil# 0.04 X10^3/uL; Basophil% 0.8 % (0-1); Eosinophil# 0.11 X10^3/uL; Eosinophils% 2.3 % (0-5); Hematocrit 41.7 % (37-47); Hemoglobin 14.1 g/dL (12.0-15.0); Lymphocyte # 1.22 X10^3/ul (0.83-4.51); Lymphocyte % 25.4 % (19-41); Mean Corp Hgb Conc 33.8 g/dL (32-36); Mean Corpuscular Hgb 30.9 pg (27.0-32.0); Mean Corpuscular Volume 91.4 fL (81-99); Mean Platelet Vol. 9.1 fl (6.2-12.0); Monocyte# 0.37 X10^3/uL; Monocyte% 7.7 % (0-10); NRBC Flagged by Analyzer 0 % (0-5); Neutrophil # 3.05 X10^3/uL (2.7-7.7); Neutrophil % 63.4 % (47-70); Platelet Count 174 K/mm3 (150-450); RBC Distribution Width CV 14.2 % (11.6-14.6); RBC Distribution Width SD 47.9 fl (35.1-43.9); Red Blood Count 4.56 M/mm3 (4.2-5.4); White Blood Count 4.8 K/mm3 (4.4-11.0)
[2021-08-01 10:37] LABS: White Blood Cells 10-25 SEEN /hpf (0-5)
[2021-08-01 10:38] LABS: Bacteria 3+ /hpf (None Seen); Mucous, Urine 1+ /hpf (<or=2+); Red Blood Cells-Urine 0-5 SEEN /hpf (0-5); Squamous Epithelial Cells - UA 0-5 SEEN /hpf (5-10)
[2021-08-01 10:59] LABS: ALB/GLOB Ratio 1.2 RATIO (0.9-2.4); AST(SGOT) 18 U/L (15-37); Alanine Aminotransfer ALT/SGPT 31 U/L (13-56); Albumin, Serum 3.7 g/dL (3.2-5.0); Alkaline Phosphatase 141 U/L (45-117); Anion Gap 10 (5-15); BUN 15 mg/dL (7-18); BUN/Creat Ratio 15.7 RATIO (10-20); Calcium,Total 8.6 mg/dL (8.5-10.1); Chloride 111 mmol/L (98-107); Cholesterol 218 mg/dL (200); Creatinine, Serum 0.96 mg/dL (0.55-1.02); EST Glomerular Filtration Rate 63 mL/min (>60); Est Glom Filt Rate - Afr Amer 76 mL/min (>60); Globulin 3.1 g/dL (2.2-4.2); Glucose 130 mg/dL (74-106); High Density Lipoprotein 61 mg/dL; Potassium 3.6 mmol/L (3.5-5.1); Protein, Total 6.8 g/dL (6.4-8.2); Sodium Level 142 mmol/L (136-145); Triglycerides 129 mg/dL; Very Low Density Lipoprotein 26 mg/dL (5-40)
[2021-08-01 19:36] LABS: Hemoglobin A1c 5.4 % (3.8-5.6)
== END | disposition home or self-care (01) ==
LOC: MFPLAB 09:39
PROVIDERS: PCP Family Medicine; Referring Provider Family Medicine; Visit Provider Family Medicine
DX: R73.09 Other abnormal glucose (principal); R82.81 Pyuria; E78.5 Hyperlipidemia, unspecified; F17.200 Nicotine dependence, unspecified, uncomplicated
CPT/HCPCS: 36415; 80053; 80061; 81001; 83036; 85025; 87086; 87088

== ENCOUNTER 2021-10-27 16:45 | Emergency (ER) | payer MEDICARE, MEDICAID, SELFPAY ==
[2021-10-27 16:47] VITALS: BP 111/44; PULSE 69; RESP 18; TEMP 35.6; O2SAT 100; BMI 41.3
[2021-10-27 16:49] VITALS: BP 111/44; PULSE 69; RESP 18; TEMP 35.6; O2SAT 100
[2021-10-27] MEDS: Ondansetron ODT 4 MG Tablet PO (18:05)
--- NOTE | 2021-10-27 18:10 | EX.ED.DYSGE1 ---
HPI History of Present Illness Chief Complaint: General Illness Detail of Chief Complaint: Nausea and vomiting Informant: patient Onset/Context/Timing Onset: Today Narrative Narrative: Patient states that this morning she had nausea and vomiting with sweats. She denies abdominal pain. No fever or chills. No diarrhea. She states that over the last 45 minutes she actually feels significantly improved. She was concerned that she may have COVID. [facility] Medical History (Updated 10/27/21 @ 19:[address] Merly Li MD) Arthritis Asthma Back problem Breast lump Cataracts, bilateral Chronic headaches Cyst of ovary Hearing problem High cholesterol Polycystic ovaries Seizures Vision problems Home Medications lamotrigine 150 mg tablet 200 mg PO BID Seizure 07/24/17 [History Last Taken Unknown] clonazepam 0.5 mg tablet 0.5 mg PO QHS Seizure 10/26/18 [History Last Taken Unknown] zonisamide 100 mg capsule 400 mg PO QHS Seizure #60 caps 10/26/18 [History Last Taken Unknown] Clonazepam 0.5 mg PO DAILY PRN Prolonged Seizure 12/14/19 [History Last Taken Unknown] albuterol sulfate 90 mcg/actuation aerosol inhaler 2 puff IH Q4H PRN PRN wheezing/SOB 12/14/19 [History Last Taken Unknown] acetaminophen 500 mg tablet 1,000 mg PO Q6H PRN PRN Pain Score 1-1012/16/19 [Rx Last Taken Unknown] menthol 0.44 %-zinc oxide 20.6 % topical ointment 1 applic topical 0600,2200 12/16/19 [Rx Last Taken Unknown] nystatin 100,000 unit/gram topical powder 1 applic topical 0600,2200 12/16/19 [Rx Last Taken Unknown] tolterodine 4 mg capsule,extended release 24 hr 4 mg PO QHS ##30 12/16/19 [Rx Last Taken Unknown] Allergy/AdvReac Type Severity Reaction Status Date / Time No Known Allergies Allergy Verified 10/11/19 13:10 Family History Brother Heart disease Son Ulcer Social History Smoking Status: Light Smoker (<10/day) how long ago did patient quit smokin, 0.5ppd second hand exposure: Yes alcohol intake: current alcohol intake frequency: holidays/special occasions only substance use type: does not use what type of physical activity do you participate in: none ROS ROS ED Constitutional Constitutional ED: Denies chills or fever(s) Eyes Eyes: Denies change in vision or discharge from eye(s) ENT ENT ED: Denies discharge from eye(s), rhinorrhea or sore throat Cardiovascular Cardiovascular: Denies chest pain or palpitations Respiratory/Chest Respiratory/Chest: Denies cough or dyspnea Gastrointestinal Gastrointestinal: Reports nausea and vomiting; Denies abdominal pain or diarrhea Genitourinary Genitourinary ED: Denies difficulty urinating or dysuria Musculoskeletal Musculoskeletal: Denies back pain or extremity pain Integumentary Denies Abrasions or rash Neurologic Neurologic: Denies headache(s) or weakness Allergic/Immunologic Allergic/Immunologic ED: Denies lip swelling or urticaria EXAM Physical Exam Const Vital Signs: 10/27/21 16:47 10/27/21 16:49 10/27/21 18:11 Temperature 96.0 F L 96.0 F L Temperature Source Temporal Temporal Pulse Rate 69 69 Respiratory Rate 18 18 Respiratory Effort Normal Non-Labored Respiratory Pattern Normal Blood Pressure 111/44 L 111/44 L Blood Pressure Mean 66 66 Pulse Ox 100 100 Oxygen Delivery Method Room Air Room Air 10/27/21 19:11 Temperature Temperature Source Pulse Rate 66 Respiratory Rate 16 Respiratory Effort Respiratory Pattern Blood Pressure 124/53 H Blood Pressure Mean 76 Pulse Ox 98 Oxygen Delivery Method Room Air Positive well nourished and well developed General Appearance ED: well developed HEENT Reports normocephalic and head/scalp atraumatic Eyes PERRL and EOMs intact bilaterally Neck supple Chest Wall inspection of chest normal and palpation of chest normal Resp normal respiratory effort and clear to auscultation bilaterally Cardio regular rate and regular rhythm GI non-tender Palpation: soft Back/Spine no CVA tenderness Extremity normal to inspection Neuro oriented x3 and no sensory deficits noted Sensorium / Orientation: alert Motor Exam: strength 5/5 throughout Psych mental status grossly normal Skin no rashes or lesions noted MDM MDM MDM Narrative Medical decision making narrative: Patient was given Zofran and p.o. fluids here. COVID test is sent. Treatment and Re-Evaluation Narrative: Rapid COVID is unremarkable. Patient is tolerating p.o. She walked down the [place]nadez to the bathroom and back without difficulty. She states she feels that she has returned back to her baseline and does not request any prescriptions for home. Discharge Plan Triage Chief Complaint: General Illness ED Provider: Merly Li Dx/Rx/DC Orders Clinical Impression: Vomiting Instructions: ED Vomiting (Adult) Prescriptions: No Action lamotrigine 150 mg tablet 200 mg PO BID zonisamide 100 mg capsule 400 mg PO QHS Qty: 60 Label Comments: TAKE 2 CAPSULES EVERY DAY AT BEDTIME clonazepam 0.5 mg tablet 0.5 mg PO QHS Rx Instructions: Do not exceed 2 doses per day. Clonazepam 0.5 MG tablet 0.5 mg PO DAILY PRN (Reason: Prolonged Seizure ) Rx Instructions: Do not exceed 2 doses per day. albuterol sulfate 1 PUFF inhaler 2 puff IH Q4H PRN PRN (Reason: wheezing/SOB) tolterodine 4 MG capsule,extended release 24hr 4 mg PO QHS Qty: 30 0RF acetaminophen 500 MG tablet 1,000 mg PO Q6H PRN PRN (Reason: Pain Score 1-10/10) 0RF nystatin 1 APPLIC bottle 1 applic topical 0600,2200 0RF Protocol: *Topical Application Instructions APPLICATION INSTRUCTIONS: Groin/Abdominal Folds menthol-zinc oxide 1 APPLIC ointment 1 applic topical 0600,2200 0RF Protocol: *Topical Application Instructions APPLICATION INSTRUCTIONS: Bilateral Buttocks/Coccyx Primary Care Provider: Houston Pascal Referrals: Houston Pascal MD [Primary Care Provider] - As Needed Disposition Disposition: Home, Self Care
[2021-10-27 19:11] VITALS: BP 124/53; PULSE 66; RESP 16; O2SAT 98
== END 2021-10-27 19:33 | disposition home or self-care (01) ==
PROVIDERS: Emergency Provider Emergency Medicine; PCP Family Medicine; Visit Provider Emergency Medicine
DX: R11.2 Nausea with vomiting, unspecified (principal); Z87.891 Personal history of nicotine dependence
CPT/HCPCS: 87811; 99284

== ENCOUNTER → 2022-01-03 | Outpatient (CLI) | payer MEDICARE, MEDICAID, SELFPAY ==
[2022-01-03 15:07] LABS: Mucous, Urine 0 SEEN /hpf (<or=2+)
[2022-01-03 17:45] LABS: Absolute Lymphocyte Count 1.15 X10^3/uL (0.83-4.51); Absolute Neutrophil Count 3.3 X10^3/uL (2.0-7.7); Basophil# 0.04 X10^3/uL; Basophil% 0.8 % (0-1); Eosinophil# 0.08 X10^3/uL; Eosinophils% 1.6 % (0-5); Hematocrit 42.9 % (37-47); Lymphocyte # 1.15 X10^3/ul (0.83-4.51); Lymphocyte % 23.5 % (19-41); Mean Corp Hgb Conc 32.6 g/dL (32-36); Mean Corpuscular Hgb 30.4 pg (27.0-32.0); Mean Corpuscular Volume 93.1 fL (81-99); Mean Platelet Vol. 9.2 fl (6.2-12.0); Monocyte# 0.32 X10^3/uL; Monocyte% 6.5 % (0-10); NRBC Flagged by Analyzer 0 % (0-5); Neutrophil % 67.4 % (47-70); Platelet Count 190 K/mm3 (150-450); RBC Distribution Width SD 47.7 fl (35.1-43.9); Red Blood Count 4.61 M/mm3 (4.2-5.4); White Blood Count 4.9 K/mm3 (4.4-11.0)
[2022-01-03 18:01] LABS: Color, Urine Yellow (Yellow); Glucose, Dipstick Normal (Normal); Ketone-Dipstick Negative (Negative); Leukocyte Esterase-Dipstick 500 /ul (Negative); Nitrite-Dipstick Negative (Negative); Occult Blood-Urine 50 /ul (Negative); Protein-Dipstick 15 mg/dl (Negative); Specific Gravity, Urine 1.015 (1.002-1.030); Urine Bilirubin Dipstick Negative (Negative); Urine Clarity Cloudy (Clear); Urine Urobilinogen Normal (Normal)
[2022-01-03 18:38] LABS: ALB/GLOB Ratio 1.2 RATIO (0.9-2.4); AST(SGOT) 21 U/L (15-37); Alanine Aminotransfer ALT/SGPT 36 U/L (13-56); Albumin, Serum 3.8 g/dL (3.2-5.0); Alkaline Phosphatase 120 U/L (45-117); Anion Gap 8 (5-15); BUN 14 mg/dL (7-18); BUN/Creat Ratio 15.3 RATIO (10-20); Calcium,Total 8.8 mg/dL (8.5-10.1); Chloride 113 mmol/L (98-107); Cholesterol 265 mg/dL (200); Creatinine, Serum 0.91 mg/dL (0.55-1.02); EST Glomerular Filtration Rate 66 mL/min (>60); Est Glom Filt Rate - Afr Amer 80 mL/min (>60); Globulin 3.2 g/dL (2.2-4.2); Glucose 116 mg/dL (74-106); High Density Lipoprotein 55 mg/dL; Potassium 3.7 mmol/L (3.5-5.1); Sodium Level 141 mmol/L (136-145); Triglycerides 159 mg/dL; Very Low Density Lipoprotein 32 mg/dL (5-40)
[2022-01-03 19:25] LABS: Bacteria 4+ /hpf (None Seen); Red Blood Cells-Urine 0-5 SEEN /hpf (0-5); Squamous Epithelial Cells - UA 10-25 SEEN /hpf (5-10); White Blood Cells 10-25 SEEN /hpf (0-5)
[2022-01-06 14:12] LABS: Hemoglobin A1c 5.4 % (3.8-5.6)
== END | disposition home or self-care (01) ==
LOC: MTLAB 15:04
PROVIDERS: PCP Family Medicine; Referring Provider Family Medicine; Visit Provider Family Medicine
DX: E78.5 Hyperlipidemia, unspecified (principal); F17.200 Nicotine dependence, unspecified, uncomplicated; R73.09 Other abnormal glucose
CPT/HCPCS: 36415; 80053; 80061; 81001; 83036; 85025

== ENCOUNTER 2022-05-01 21:13 | Emergency (ER) | payer MEDICARE, MEDICAID, SELFPAY ==
[2022-05-01 21:14] VITALS: BP 175/77; PULSE 118; RESP 16; TEMP 36.8; O2SAT 95; BMI 41.3
[2022-05-01 22:09] LABS: Absolute Lymphocyte Count 1.12 X10^3/uL (0.83-4.51); Absolute Neutrophil Count 4.1 X10^3/uL (2.0-7.7); Basophil# 0.02 X10^3/uL; Basophil% 0.3 % (0-1); Eosinophil# 0.21 X10^3/uL; Eosinophils% 3.5 % (0-5); Hematocrit 42.3 % (37-47); Hemoglobin 14.1 g/dL (12.0-15.0); Lymphocyte # 1.12 X10^3/ul (0.83-4.51); Lymphocyte % 18.9 % (19-41); Mean Corp Hgb Conc 33.3 g/dL (32-36); Mean Corpuscular Hgb 30.6 pg (27.0-32.0); Mean Corpuscular Volume 91.8 fL (81-99); Mean Platelet Vol. 9.1 fl (6.2-12.0); Monocyte# 0.41 X10^3/uL; Monocyte% 6.9 % (0-10); NRBC Flagged by Analyzer 0 % (0-5); Neutrophil # 4.14 X10^3/uL (2.7-7.7); Neutrophil % 70.1 % (47-70); Platelet Count 152 K/mm3 (150-450); RBC Distribution Width CV 14.5 % (11.6-14.6); RBC Distribution Width SD 48.3 fl (35.1-43.9); Red Blood Count 4.61 M/mm3 (4.2-5.4); White Blood Count 5.9 K/mm3 (4.4-11.0)
[2022-05-01 22:23] LABS: Anion Gap 10 (5-15); BUN 15 mg/dL (7-18); Calcium,Total 8.7 mg/dL (8.5-10.1); Chloride 113 mmol/L (98-107); Creatinine, Serum 1.07 mg/dL (0.55-1.02); EST Glomerular Filtration Rate 55 mL/min (>60); Est Glom Filt Rate - Afr Amer 67 mL/min (>60); Estimated Creatinine Clearance 44.52 ml/min; Glucose 215 mg/dL (74-106); Potassium 3.5 mmol/L (3.5-5.1); Sodium Level 143 mmol/L (136-145)
[2022-05-01] MEDS: MethylPREDNISolone 125 MG/2 ML Vial IV (22:35)
[2022-05-01] MEDS: Orphenadrine 60 MG/2 ML Ampul IV (22:36)
[2022-05-01 22:51] LABS: D-Dimer Quantitative (DVT/PE) < 0.27 FEU/ug/m (0.27-0.49)
[2022-05-01] MEDS: Albuterol 2.5 MG/3 ML VIAL.NEB. INHALATION (22:54)
[2022-05-01 22:55] VITALS: PULSE 108; RESP 18
[2022-05-01] MEDS: Ipratropium/Albuterol Sulfate 3 ML AMPUL.NEB INHALATION (22:55)
--- NOTE | 2022-05-01 22:57 | CPS ---
Aerosols stopped after 2 minutes at patient's request. She states it is making her dizzy.
--- NOTE | 2022-05-01 23:10 | RAD_ITS ---
EXAM: XR CHEST, 2 VIEWS CLINICAL INDICATION: cough TECHNIQUE: Frontal and lateral views of the chest. This report was created using [employer] report generation technology. COMPARISON: April 22, 2021. FINDINGS: LUNGS AND PLEURAL SPACES: Stable minimal linear changes at the left lung base, slightly increased lucency in the upper lung stock. No pneumothorax. No effusion. HEART: Unremarkable. Cardiac silhouette not enlarged. MEDIASTINUM: Central airways and mediastinal contour are unremarkable. BONES/JOINTS: Unremarkable. SOFT TISSUES: Unremarkable. RAD/Chest PA and Lateral IMPRESSION: No acute intrathoracic abnormality. Stable minimal chronic changes. Electronically Signed: Kerri Trevino MD at 23:48 EST ,
--- NOTE | 2022-05-02 00:28 | EX.ED.DYSGE1 ---
HPI History of Present Illness Chief Complaint: Shortness of Breath Narrative Narrative: Patient is a 62-year-old female with past medical history of COPD. She has an albuterol rescue inhaler and takes Breo daily. She states over the past 1 to 2 weeks she has had increased congestion and cough. She states it is to the point where she feels short of breath and has concerned that she is developing pneumonia. She also reports she has remote history of a blood clot roughly 10 years ago and this also concerns her. She reports that she is also noticed some pain in her right back that is worse with certain motions. She denies any recent trauma or excessive activity. She denies any loss of bowel or bladder control or IV drug use. However because of the persistent cough and persistent back pain she presents for evaluation [facility] Medical History (Updated 05/02/22 @ 00:[address] Yves Cole, ) Arthritis Asthma Back problem Breast lump Cataracts, bilateral Chronic headaches Cyst of ovary Hearing problem High cholesterol Polycystic ovaries Seizures Vision problems Home Medications lamotrigine 150 mg tablet 200 mg PO BID Seizure 07/24/17 [History Last Taken Unknown] zonisamide 100 mg capsule 400 mg PO QHS Seizure #60 caps 10/26/18 [History Last Taken Unknown] Clonazepam 0.5 mg PO DAILY PRN Prolonged Seizure 12/14/19 [History Last Taken Unknown] albuterol sulfate 90 mcg/actuation aerosol inhaler 2 puff IH Q4H PRN PRN wheezing/SOB 12/14/19 [History Last Taken Unknown] fluticasone furoate 200 mcg-vilanterol 25 mcg/dose inhalation powder (Breo Ellipta) 1 ea inhalation DAILY 05/01/22 [History Last Taken Unknown] rosuvastatin 20 mg tablet 40 mg PO QHS 05/01/22 [History Last Taken Unknown] methocarbamol 500 mg tablet 1,000 mg PO Q6H 7 days #56 tabs 05/02/22 [Rx Last Taken Unknown] prednisone 20 mg tablet 40 mg PO DAILY 5 days #10 tabs 05/02/22 [Rx Last Taken Unknown] promethazine 6.25 mg-codeine 10 mg/5 mL syrup 5 ml PO 4X/DAY PRN PRN cough 7 days #140 mL 05/02/22 [Rx Last Taken Unknown] Allergy/AdvReac Type Severity Reaction Status Date / Time No Known Allergies Allergy Verified 10/11/19 13:10 Family History Brother Heart disease Son Ulcer Social History Smoking Status: Light Smoker (<10/day) how long ago did patient quit smokin, 0.5ppd second hand exposure: Yes alcohol intake: current alcohol intake frequency: holidays/special occasions only substance use type: does not use what type of physical activity do you participate in: none ROS ROS ED Constitutional Constitutional ED: Denies chills or fever(s) ENT ENT ED: Reports rhinorrhea and sore throat Cardiovascular Cardiovascular: Denies chest pain Respiratory/Chest Respiratory/Chest: Reports cough and dyspnea Gastrointestinal Gastrointestinal: Denies abdominal pain, diarrhea, nausea or vomiting Genitourinary Genitourinary ED: Denies dysuria or hematuria Musculoskeletal Musculoskeletal: Reports back pain Integumentary Denies rash Neurologic Neurologic: Reports headache(s) Psychiatric Psychiatric: Reports depression; Denies suicidal ideation or suicidal thoughts Hematologic/Lymphatic Hematologic/Lymphatic: Denies easy bleeding or easy bruising EXAM Physical Exam Const Vital Signs: 05/01/22 21:14 05/01/22 22:15 05/01/22 22:15 Temperature 98.2 F Temperature Source Temporal Pulse Rate 118 H Respiratory Rate 16 Respiratory Effort Respiratory Depth Respiratory Pattern Blood Pressure 175/77 H Blood Pressure Mean 109 Pulse Ox 95 Oxygen Delivery Method Room Air Room Air Room Air 05/01/22 22:20 05/01/22 22:55 Temperature Temperature Source Pulse Rate 108 H Respiratory Rate 18 Respiratory Effort Normal Non-Labored Respiratory Depth Normal Respiratory Pattern Normal Blood Pressure Blood Pressure Mean Pulse Ox Oxygen Delivery Method Room Air Positive well nourished, well developed and obese General Appearance ED: well developed Nutritional Appearance: obese HEENT Reports moist mucous membranes HEENT Narrative: No tongue or lip swelling no oral lesions no airway edema or compromise. Mild cobblestoning noted in the posterior pharynx Eyes PERRL and EOMs intact bilaterally Neck supple and no JVD Resp normal respiratory effort Resp Narrative: Breath sounds are diminished throughout with diffuse expiratory wheeze but otherwise no nasal flaring retractions tachypnea or accessory muscle use Cardio regular rate and regular rhythm Back/Spine Back/Spine Narrative: No bony deformity or step-off of the thoracic or lumbar spine no midline pain with palpation. There is right paralumbar tenderness and spasm noted that worsens with extension and flexion. No saddle anesthesia. Negative straight leg raise. No clonus or Babinski. Patellar reflexes are plus 1 out of 4 bilaterally Extremity normal to inspection Extremity Narrative: No asymmetric edema no pitting edema negative Homans' sign bilaterally Neuro oriented x3 and CN's II-XII intact bilaterally Sensorium / Orientation: alert Psych Psych Narrative: Patient has a depressed affect Skin no rashes or lesions noted MDM MDM MDM Narrative Medical decision making narrative: Patient presented to the ER no acute respiratory distress. With her history of COPD and her persistent cough it is most likely she is having a COPD exacerbation. However as there is concern for pneumonia and with her previous history of DVT/PE this is another possibility basic work-up was obtained with a chest x-ray and D-dimer. I have low concern for cauda equina or epidural abscess as patient has no risk factors associated with. The blood work revealed no clinically significant findings. Chest x-ray revealed chronic COPD changes without infiltrate. After given steroids and breathing treatments her breath sounds improved and patient reported feeling somewhat better. Therefore at this time with negative work-up and no need for supplemental oxygen patient can be discharged home with symptomatic care Lab Data Attestation: I reviewed the patient's lab results. Labs: Laboratory Results - last 24 hr 05/01/22 05/01/22 05/01/22 22:00 22:00 22:00 WBC 5.9 RBC 4.61 Hgb 14.1 Hct 42.3 MCV 91.8 MCH 30.6 MCHC 33.3 RDW Std Deviation 48.3 H RDW Coeff of Rudi 14.5 Plt Count 152 MPV 9.1 Immature Gran % (Auto) 0.300 Neut % (Auto) 70.1 H Lymph % (Auto) 18.9 L Greenlee % (Auto) 6.9 Eos % (Auto) 3.5 Baso % (Auto) 0.3 Absolute Neuts (auto) 4.1 Absolute Lymphs (auto) 1.12 Nucleated RBC % 0 D-Dimer Quant (PE/DVT) < 0.27 L Sodium 143 Potassium 3.5 Chloride 113 H Carbon Dioxide 20.0 L Anion Gap 10 BUN 15 Creatinine 1.07 H Estim Creat Clear Calc 44.52 Est GFR (MDRD) Af Amer 67 Est GFR (MDRD) Non-Af 55 L BUN/Creatinine Ratio 14.0 Glucose 215 H Calcium 8.7 Radiography Diagnostic Testing: Clinical Impression(s) from Imaging Studies Chest X-Ray 05/01/22 23:10 IMPRESSION: No acute intrathoracic abnormality. Stable minimal chronic changes. Electronically Signed: Kerri Trevino MD at 23:48 EST , 2 view chest x-ray as interpreted by the emergency medicine physician displays chronic changes consistent with COPD without acute infiltrate pneumothorax or pleural effusion Discharge Plan Triage Chief Complaint: Shortness of Breath ED Provider: Yves Cole Dx/Rx/DC Orders Clinical Impression: Acute exacerbation of chronic obstructive pulmonary disease, Acute lumbosacral myofascial strain Instructions: COPD: Chronic Coughing, COPD: Coping with Mucus, Understanding Lumbosacral Strain Prescriptions: New prednisone 20 mg tablet 40 mg PO DAILY 5 Days Qty: 10 0RF methocarbamol 500 mg tablet 1,000 mg PO Q6H 7 Days Qty: 56 0RF Rx Instructions: 1 to 2 pills by mouth 4 times daily as needed muscle pain/spasm promethazine-codeine 6.25-10 mg/5 mL syrup 5 ml PO 4X/DAY PRN PRN (Reason: cough) 7 Days Qty: 140 0RF No Action lamotrigine 150 mg tablet 200 mg PO BID zonisamide 100 mg capsule 400 mg PO QHS Qty: 60 Label Comments: TAKE 2 CAPSULES EVERY DAY AT BEDTIME Clonazepam 0.5 MG tablet 0.5 mg PO DAILY PRN (Reason: Prolonged Seizure ) Rx Instructions: Do not exceed 2 doses per day. albuterol sulfate 1 PUFF inhaler 2 puff IH Q4H PRN PRN (Reason: wheezing/SOB) rosuvastatin 20 mg tablet 40 mg PO QHS Label Comments: TAKE 2 TABLETS BY MOUTH NIGHTLY fluticasone furoate-vilanterol [Breo Ellipta] 200-25 mcg/dose blister with device 1 ea INHALATION DAILY Label Comments: INHALE 1 (ONE) puff BY MOUTH EVERY DAY. rinse mouth after use. Primary Care Provider: Houston Pascal Referrals: Houston Pascal MD [Primary Care Provider] - Activity Restrictions/Additional Instructions: Your work-up today does not show pneumonia and your work-up for blood clot is also negative. Your history and exam is consistent with COPD exacerbation and a pulled muscle in your low back. Take your medication as directed to help with this and return to the ER should you have any further concerns Disposition Disposition: Home, Self Care Discharge Date/Time: 05/02/22 00:50
[2022-05-02] MEDS: oxyCODONE 5 MG Tablet 10 MG PO (00:40)
== END 2022-05-02 00:50 | disposition home or self-care (01) ==
PROVIDERS: Emergency Provider Emergency Medicine; PCP Family Medicine; Visit Provider Emergency Medicine
DX: J44.1 Chronic obstructive pulmonary disease with (acute) exacerbation (principal); Z68.41 Body mass index [BMI] 40.0-44.9, adult; S39.012A Strain of muscle, fascia and tendon of lower back, initial encounter; X58.XXXA Exposure to other specified factors, initial encounter; F17.200 Nicotine dependence, unspecified, uncomplicated; E66.9 Obesity, unspecified
CPT/HCPCS: 71046; 80048; 85025; 85379; 87811; 94640; 94760; 96374; 96375; 99282; A4216

== ENCOUNTER → 2022-05-16 | Outpatient (CLI) | payer MEDICARE, MEDICAID, SELFPAY ==
[2022-05-16 11:42] LABS: Mucous, Urine 0 SEEN /hpf (<or=2+); Red Blood Cells-Urine 0 SEEN /hpf (0-5); Squamous Epithelial Cells - UA 0 SEEN /hpf (5-10)
[2022-05-16 15:02] LABS: Absolute Lymphocyte Count 1.42 X10^3/uL (0.83-4.51); Absolute Neutrophil Count 7.3 X10^3/uL (2.0-7.7); Basophil# 0.05 X10^3/uL; Basophil% 0.5 % (0-1); Eosinophil# 0.08 X10^3/uL; Eosinophils% 0.9 % (0-5); Hematocrit 43.4 % (37-47); Hemoglobin 14.3 g/dL (12.0-15.0); Lymphocyte # 1.42 X10^3/ul (0.83-4.51); Lymphocyte % 15.2 % (19-41); Mean Corp Hgb Conc 32.9 g/dL (32-36); Mean Corpuscular Hgb 30.2 pg (27.0-32.0); Mean Corpuscular Volume 91.6 fL (81-99); Mean Platelet Vol. 9.3 fl (6.2-12.0); Monocyte# 0.45 X10^3/uL; Monocyte% 4.8 % (0-10); NRBC Flagged by Analyzer 0 % (0-5); Neutrophil # 7.33 X10^3/uL (2.7-7.7); Neutrophil % 78.3 % (47-70); Platelet Count 177 K/mm3 (150-450); RBC Distribution Width CV 13.8 % (11.6-14.6); RBC Distribution Width SD 46.7 fl (35.1-43.9); Red Blood Count 4.74 M/mm3 (4.2-5.4); White Blood Count 9.4 K/mm3 (4.4-11.0)
[2022-05-16 15:35] LABS: Color, Urine Yellow (Yellow); Glucose, Dipstick Normal (Normal); Ketone-Dipstick Negative (Negative); Leukocyte Esterase-Dipstick 100 /ul (Negative); Nitrite-Dipstick Negative (Negative); Occult Blood-Urine 50 /ul (Negative); Protein-Dipstick 100 mg/dl (Negative); Specific Gravity, Urine 1.025 (1.002-1.030); Urine Bilirubin Dipstick Negative (Negative); Urine Clarity Sl. Cloudy (Clear); Urine Urobilinogen Normal (Normal)
[2022-05-16 15:48] LABS: ALB/GLOB Ratio 1.1 RATIO (0.9-2.4); AST(SGOT) 18 U/L (15-37); Alanine Aminotransfer ALT/SGPT 28 U/L (13-56); Albumin, Serum 3.9 g/dL (3.2-5.0); Alkaline Phosphatase 106 U/L (45-117); Anion Gap 9 (5-15); BUN 13 mg/dL (7-18); BUN/Creat Ratio 10.6 RATIO (10-20); Calcium,Total 9.2 mg/dL (8.5-10.1); Chloride 109 mmol/L (98-107); Cholesterol 161 mg/dL (200); Creatinine, Serum 1.23 mg/dL (0.55-1.02); EST Glomerular Filtration Rate 47 mL/min (>60); Est Glom Filt Rate - Afr Amer 57 mL/min (>60); Globulin 3.6 g/dL (2.2-4.2); Glucose 156 mg/dL (74-106); High Density Lipoprotein 62 mg/dL; Potassium 3.4 mmol/L (3.5-5.1); Protein, Total 7.5 g/dL (6.4-8.2); Sodium Level 139 mmol/L (136-145); Triglycerides 135 mg/dL; Very Low Density Lipoprotein 27 mg/dL (5-40)
[2022-05-16 16:08] LABS: Bacteria 2+ /hpf (None Seen); White Blood Cells 5-10 SEEN /hpf (0-5)
[2022-05-16 16:09] LABS: Amorphous Sediment 2+; Calcium Oxalate Crystals Ur 1+ /hpf (<or=2+)
== END | disposition home or self-care (01) ==
LOC: MFPLAB 11:40
PROVIDERS: PCP Family Medicine; Visit Provider Family Medicine
DX: E78.5 Hyperlipidemia, unspecified (principal)
CPT/HCPCS: 36415; 80053; 80061; 81001; 85025

== ENCOUNTER → 2023-05-20 | Outpatient (CLI) | payer MEDICARE, MEDICAID, SELFPAY ==
[2023-05-20 13:53] LABS: Mucous, Urine 0 SEEN /hpf (<or=2+)
[2023-05-20 15:42] LABS: Absolute Lymphocyte Count 1.05 X10^3/uL (0.83-4.51); Absolute Neutrophil Count 3.3 X10^3/uL (2.0-7.7); Basophil# 0.03 X10^3/uL; Basophil% 0.6 % (0-1); Eosinophils% 2.1 % (0-5); Hematocrit 42.3 % (37-47); Hemoglobin 13.7 g/dL (12.0-15.0); Lymphocyte # 1.05 X10^3/ul (0.83-4.51); Lymphocyte % 22.2 % (19-41); Mean Corp Hgb Conc 32.4 g/dL (32-36); Mean Corpuscular Hgb 29.1 pg (27.0-32.0); Monocyte# 0.25 X10^3/uL; Monocyte% 5.3 % (0-10); NRBC Flagged by Analyzer 0 % (0-5); Neutrophil # 3.28 X10^3/uL (2.7-7.7); Neutrophil % 69.4 % (47-70); Platelet Count 203 K/mm3 (150-450); RBC Distribution Width SD 45.7 fl (35.1-43.9); White Blood Count 4.7 K/mm3 (4.4-11.0)
[2023-05-20 15:48] LABS: Color, Urine Yellow (Yellow); Glucose, Dipstick 50 mg/dl (Normal); Ketone-Dipstick Negative (Negative); Leukocyte Esterase-Dipstick 500 /ul (Negative); Nitrite-Dipstick Negative (Negative); Occult Blood-Urine 25 /ul (Negative); Protein-Dipstick 15 mg/dl (Negative); Specific Gravity, Urine 1.015 (1.002-1.030); Urine Bilirubin Dipstick Negative (Negative); Urine Clarity Sl. Cloudy (Clear); Urine Urobilinogen 4 mg/dl (Normal); Urine pH 6.5 (5.0 - 8.0)
[2023-05-20 15:57] LABS: Bacteria 2+ /hpf (None Seen); Red Blood Cells-Urine 0-5 SEEN /hpf (0-5); Squamous Epithelial Cells - UA 5-10 SEEN /hpf (5-10); White Blood Cells 25-50 SEEN /hpf (0-5)
[2023-05-20 16:03] LABS: PTHIN 115.7 pg/mL (18.4-80.1)
[2023-05-20 16:05] LABS: Vitamin D,25 Hydroxy 4.3 ng/mL
[2023-05-20 16:06] LABS: ALB/GLOB Ratio 1.1 RATIO (0.9-2.4); AST(SGOT) 21 U/L (15-37); Alanine Aminotransfer ALT/SGPT 27 U/L (13-56); Albumin, Serum 3.9 g/dL (3.2-5.0); Alkaline Phosphatase 169 U/L (45-117); Anion Gap 6 (5-15); BUN 8 mg/dL (7-18); BUN/Creat Ratio 8.4 RATIO (10-20); Calcium,Total 8.8 mg/dL (8.5-10.1); Chloride 113 mmol/L (98-107); Cholesterol 160 mg/dL (200); Creatinine, Serum 0.95 mg/dL (0.55-1.02); EST Glomerular Filtration Rate 63 mL/min (>60); Est Glom Filt Rate - Afr Amer 76 mL/min (>60); Globulin 3.4 g/dL (2.2-4.2); Glucose 165 mg/dL (74-106); High Density Lipoprotein 60 mg/dL; Phosphorus 1.3 mg/dL (2.5-4.9); Potassium 3.5 mmol/L (3.5-5.1); Protein, Total 7.3 g/dL (6.4-8.2); Sodium Level 141 mmol/L (136-145); Triglycerides 141 mg/dL; Very Low Density Lipoprotein 28 mg/dL (5-40)
== END | disposition home or self-care (01) ==
LOC: MFPLAB 13:51
PROVIDERS: PCP Family Medicine; Visit Provider Family Medicine
DX: N18.30 Chronic kidney disease, stage 3 unspecified (principal); E78.5 Hyperlipidemia, unspecified; F17.200 Nicotine dependence, unspecified, uncomplicated
CPT/HCPCS: 36415; 80053; 80061; 81001; 82306; 83970; 84100; 85025

== ENCOUNTER → 2023-10-22 | Outpatient (CLI) | payer MEDICARE, MEDICAID, SELFPAY ==
[2023-10-27 11:59] LABS: Lamotrigine (Lamictal) Level 8.7 ug/mL (2.0-20.0)
== END | disposition home or self-care (01) ==
PROVIDERS: PCP Family Medicine
DX: G40.219 Localization-related (focal) (partial) symptomatic epilepsy and epileptic syndromes with complex partial seizures, intractable, without status epilepticus (principal)
CPT/HCPCS: 36415; 82542

== ENCOUNTER 2024-03-01 09:43 | Emergency (ER) | payer MEDICARE, MEDICAID, SELFPAY ==
[2024-03-01 09:44] VITALS: BP 147/77; PULSE 84; RESP 18; TEMP 36.8; O2SAT 98
[2024-03-01 09:48] VITALS: BMI 42.7
--- NOTE | 2024-03-01 09:56 | EDS_ITS ---
HPI History of Present Illness Chief Complaint: Abscess Detail of Chief Complaint: Right upper abdominal wall abscess Informant: patient Onset/Context/Timing Onset: Days Context: Gradual Onset Timing: Continuous Current Severity: Mild Maximum Severity: Mild Narrative Narrative: 64-year-old female history of seizures and asthma. Not diabetic. States she has had a right upper abdominal wall abscess for approximately 1 week. Minimal yellowish drainage. No fever. She has had prior abscesses on her back. Initially patient said it was on her right breast it is not on her breast at all it is underneath and medial to her breast on the upper abdomen. Prior similar symptoms: Yes Recent Illness/Hospitalization: No [facility] Medical History (Updated 03/01/24 @ 11:[address] Thad Alcaraz MD) Macular degeneration Breast lump Cataracts, bilateral Back problem Cyst of ovary Vision problems Seizures Polycystic ovaries High cholesterol Hearing problem Chronic headaches Asthma Arthritis Home Medications ?Medication ?Instructions ?Recorded ?Last Taken ?Type lamotrigine 150 mg tablet 200 mg PO BID Seizure 07/24/17 Unknown History zonisamide 100 mg capsule 400 mg PO QHS Seizure #60 caps 10/26/18 Unknown History Clonazepam 0.5 mg PO DAILY PRN Prolonged 12/14/19 Unknown History Seizure albuterol sulfate 90 mcg/actuation 2 puff IH Q4H PRN PRN wheezing/SOB 12/14/19 Unknown History aerosol inhaler fluticasone furoate 200 1 ea inhalation DAILY 05/01/22 Unknown History mcg-vilanterol 25 mcg/dose inhalation powder (Breo Ellipta) rosuvastatin 20 mg tablet 40 mg PO QHS 05/01/22 Unknown History methocarbamol 500 mg tablet 1,000 mg (2 x 500 mg) PO Q6H 7 05/02/22 Unknown Rx days #56 tabs prednisone 20 mg tablet 40 mg (2 x 20 mg) PO DAILY 5 days 05/02/22 Unknown Rx #10 tabs promethazine 6.25 mg-codeine 10 5 ml PO 4X/DAY PRN PRN cough 7 05/02/22 Unknown Rx mg/5 mL syrup days #140 mL cephalexin 500 mg capsule 500 mg PO Q6 #40 CAPSULES 03/01/24 Unknown Rx Allergy/AdvReac Type Severity Reaction Status Date / Time No Known Allergies Allergy Verified 03/01/24 09:48 Family History Brother Heart disease Son Ulcer Social History Smoking Status: Former smoker how long ago did patient quit smokin, 0.5ppd second hand exposure: Yes alcohol intake: current alcohol intake frequency: holidays/special occasions only substance use type: does not use what type of physical activity do you participate in: none ROS ROS ED ROS Narrative Denies recent illness. Constitutional Constitutional ED: Denies chills or fever(s) Eyes Eyes: Denies blurry vision ENT ENT ED: Denies ear pain Cardiovascular Cardiovascular: Denies chest pain Respiratory/Chest Respiratory/Chest: Denies cough or dyspnea Gastrointestinal Gastrointestinal: Denies abdominal pain Genitourinary Genitourinary ED: Denies dysuria or hematuria Musculoskeletal Musculoskeletal: Denies arthralgias Integumentary Denies abscess or Abrasions Psychiatric Psychiatric: Denies anxiety or depression Endocrine Endocrinology: Denies cold intolerance Hematologic/Lymphatic Hematologic/Lymphatic: Reports none Allergic/Immunologic Allergic/Immunologic ED: Denies mouth swelling, tongue swelling or urticaria EXAM Physical Exam Narrative Exam Narrative: 64-year-old female no acute distress. Vital signs stable afebrile. H EENT exam unremarked. Neck nontender. Lungs clear to auscultation bilaterally. Heart regular rhythm rate about 85 no murmur. Chest wall ribs nontender. Abdomen is soft there is a quarter to half dollar sized subcu abscess on the right upper abdomen between the right upper quadrant and epigastric region. It is fluctuant. Mildly tender. No significant surrounding cellulitis. Currently no drainage. Abdomen otherwise is nontender without peritoneal signs. Moving all 4 extremities. Nontender no edema patient is awake and alert. No focal motor deficits. Answering questions and following commands. Const Vital Signs: 03/01/24 09:44 Temperature 98.3 F Temperature Source Oral Pulse Rate 84 Respiratory Rate 18 Blood Pressure 147/77 H Blood Pressure Mean 100 Pulse Ox 98 Oxygen Delivery Method Room Air Positive well nourished and well developed; Negative for cachectic, contractures or unkempt General Appearance ED: well developed and NAD; Negative for unkempt, cachectic, contractures, cyanotic, diaphoretic or pallor Nutritional Appearance: Negative for cachectic HEENT Reports moist mucous membranes Negative for trauma or tenderness Eyes PERRL and EOMs intact bilaterally General Eye ED: Negative for pale conjunctiva Neck no lymphadenopathy, supple and no JVD General: Negative for tenderness Lymph Lymphatic: Negative for other Chest Wall inspection of chest normal and palpation of chest normal Resp normal respiratory effort and clear to auscultation bilaterally Effort and Inspection: Negative for retractions Auscultation: Negative for rales, rhonchi, wheezes or diminished lung sounds Cardio regular rate, regular rhythm, S1 normal heart sound, S2 normal heart sound and no murmurs GI normal to inspection, nondistended, normoactive bowel sounds, non-tender, non- distended and no masses GI Narrative: Right upper abdomen quarter to half dollar sized area of a subcu abscess. Mildly tender. Fluctuant. Palpation: soft; Negative for guarding or rebound tenderness present Extremity normal to inspection General Extremety ED: Negative for edema or tenderness General Extremity: Negative for edema Neuro oriented x3 and CN's II-XII intact bilaterally Sensorium / Orientation: alert Motor Exam: strength 5/5 throughout Psych mental status grossly normal Appearance: Negative for unkempt Attitude: No agitated Mood & Affect: Negative for depressed, anxious or tearful Skin no rashes or lesions noted, no wounds and skin turgor normal Skin Narrative: Right upper abdominal wall subcu abscess. General Skin Exam: Negative for jaundice or pallor Lesions: No lesion noted Rashes: No rashes noted Trauma: Negative for abrasion MDM MDM MDM Narrative Medical decision making narrative: 64-year-old female with a abdominal wall subcu abscess that we will locally anesthetized and incised and drained. Discharged home on antibiotics. Incise and drain the subcu abscess on her right upper abdomen. Express about 3 to 5 cc of pus and blood. Irrigated the wound. I had made about a 1 inch horizontal incision. Broke up any loculations with the probe. Expressed all the blood and pus that I could. Placed about 4 inches of quarter inch gauze. Patient was instructed to remove in 4 days. She was given a dose of Keflex here patient on a prescription for 10 days. Tylenol for pain here. History & Record Review Discussion w/independent historian: Patient Additional record(s) reviewed:: Prior inpatient record, Prior outpatient record, Prior ED visit and Prior labs Procedures Other Procedures Procedure(s): Upper abdominal subcu abscess. Cleaned with iodine. Locally anesthetized with lidocaine. Once proper anesthetic was obtained. I made a 1 inch horizontal incision. Was able to express about 3 to 5 cc of pus and blood. Irrigated the wound. Placed about 4 inches of quarter inch gauze. Gave the jerod pizarro wound care instructions. A dose of Keflex here. A prescription for Keflex for 10 days. Tylenol for pain. Nurses placed a dressing should be discharged. Outpatient follow-up. Discharge Plan Triage Chief Complaint: Abscess ED Provider: Thad Alcaraz Dx/Rx/DC Orders Clinical Impression: Abscess of skin and subcutaneous tissue, History of incision and drainage Instructions: Abscess Drainage Prescriptions: New cephalexin 500 mg capsule 500 mg PO Q6 Qty: 40 0RF No Action lamotrigine 150 mg tablet 200 mg PO BID zonisamide 100 mg capsule 400 mg PO QHS Qty: 60 Patient Comments: TAKE 2 CAPSULES EVERY DAY AT BEDTIME Clonazepam 0.5 MG tablet 0.5 mg PO DAILY PRN (Reason: Prolonged Seizure ) Rx Instructions: Do not exceed 2 doses per day. albuterol sulfate 1 PUFF inhaler 2 puff IH Q4H PRN PRN (Reason: wheezing/SOB) rosuvastatin 20 mg tablet 40 mg PO QHS Patient Comments: TAKE 2 TABLETS BY MOUTH NIGHTLY fluticasone furoate-vilanterol [Breo Ellipta] 200-25 mcg/dose blister with device 1 ea INHALATION DAILY Patient Comments: INHALE 1 (ONE) puff BY MOUTH EVERY DAY. rinse mouth after use. prednisone 20 mg tablet 40 mg PO DAILY 5 Days Qty: 10 0RF methocarbamol 500 mg tablet 1,000 mg PO Q6H 7 Days Qty: 56 0RF Rx Instructions: 1 to 2 pills by mouth 4 times daily as needed muscle pain/spasm promethazine-codeine 6.25-10 mg/5 mL syrup 5 ml PO 4X/DAY PRN PRN (Reason: cough) 7 Days Qty: 140 0RF Primary Care Provider: Houston Pascal Referrals: Houston Pascal MD [Primary Care Provider] - 1 Week Activity Restrictions/Additional Instructions: Warm compresses to the area. I opened it up and got pus and blood out. It will keep draining. There is packing material in there. Pull it out in 4 days. There is several inches of packing gauze it will come out in 1 piece. Tylenol and Motrin for pain. The antibiotic Keflex 1 pill 4 times a day for the next 10 days. Follow-up with your doctor to ensure this is improving. If it is looking worse more red around it or you develop a fever or feeling worse just return to the emergency department. Print Language: Citizen Of [place] Disposition Disposition: Home, Self Care
[2024-03-01] MEDS: Lidocaine 1% (20 ml mdv) 20 ML Vial 10 ML INFILT (10:03)
[2024-03-01 11:44] VITALS: PULSE 80; RESP 16; O2SAT 97
[2024-03-01] MEDS: Cephalexin 250 MG Capsule 500 MG PO (12:07)
[2024-03-01] MEDS: Acetaminophen 500 MG Tablet 1000 MG PO (12:07)
[2024-03-01 12:08] VITALS: BP 147/77; PULSE 80; RESP 16; TEMP 36.8; O2SAT 97
== END 2024-03-01 12:14 | disposition home or self-care (01) ==
PROVIDERS: Emergency Provider Emergency Medicine; PCP Family Medicine; Visit Provider Emergency Medicine
DX: L02.211 Cutaneous abscess of abdominal wall (principal); Z87.891 Personal history of nicotine dependence
CPT/HCPCS: 99283

== ENCOUNTER 2024-03-08 17:58 | Emergency (ER) | payer MEDICARE, MEDICAID, SELFPAY ==
[2024-03-08 17:58] VITALS: BP 163/72; PULSE 86; RESP 15; TEMP 36.7; O2SAT 97; BMI 41.4
--- NOTE | 2024-03-08 18:10 | EX.ED.DYSGE1 ---
HPI History of Present Illness Chief Complaint: Abscess Detail of Chief Complaint: URI symptoms with nausea and vomiting. Recent I&D of an abscess Informant: patient Onset/Context/Timing Onset: Days Context: Gradual Onset Timing: Intermittent Current Severity: Mild Maximum Severity: Mild Narrative Narrative: 64-year-old female actually saw here on the she had a right upper quadrant abdominal wall abscess that we I&D. She was placed on Keflex and it was packed. Several days after she was seen in the emergency department she developed what she thinks is a virus with nonproductive cough and nausea and vomiting. Said because of nausea and vomiting she could not keep taking her antibiotic and stopped it. She pulled the packing out in 3 days. She said the abscess is looking better but is not completely healed. She denies any diarrhea. No melena or hematemesis. States she feels dehydrated. Prior similar symptoms: Yes Recent Illness/Hospitalization: No [facility] PFS Medical History Macular degeneration Breast lump Cataracts, bilateral Back problem Cyst of ovary Vision problems Seizures Polycystic ovaries High cholesterol Hearing problem Chronic headaches Asthma Arthritis Home Medications ?Medication ?Instructions ?Recorded ?Last Taken ?Type lamotrigine 150 mg tablet 200 mg PO BID Seizure 07/24/17 Unknown History albuterol sulfate 90 mcg/actuation 2 puff IH Q4H PRN PRN wheezing/SOB 12/14/19 Unknown History aerosol inhaler fluticasone furoate 200 1 ea inhalation DAILY 05/01/22 Unknown History mcg-vilanterol 25 mcg/dose inhalation powder (Breo Ellipta) cephalexin 500 mg capsule 500 mg PO Q6 #40 CAPSULES 03/01/24 Unknown Rx clonazepam 0.5 mg tablet 0.5 mg PO PRN 03/08/24 Unknown History hydrocodone-acetaminophen 5-325mg 1 tab PO Q4H PRN PRN Pain 3 days 03/08/24 Unknown Rx 5mg-325mg #12 TABLETS ondansetron 4 mg disintegrating 4 mg PO Q6H PRN nausea and 03/08/24 Unknown Rx tablet vomiting #7 tabs Allergy/AdvReac Type Severity Reaction Status Date / Time No Known Allergies Allergy Verified 03/08/24 17:58 Family History Brother Heart disease Son Ulcer Social History Smoking Status: Former smoker how long ago did patient quit smokin, 0.5ppd second hand exposure: Yes alcohol intake: current alcohol intake frequency: holidays/special occasions only substance use type: does not use what type of physical activity do you participate in: none ROS ROS ED ROS Narrative Nausea and vomiting. Nonproductive cough. Constitutional Constitutional ED: Reports fever(s) and other Details: Had a fever it has since resolved. ; Denies chills Eyes Eyes: Denies blurry vision ENT ENT ED: Denies ear pain Cardiovascular Cardiovascular: Denies chest pain Respiratory/Chest Respiratory/Chest: Reports cough; Denies dyspnea Gastrointestinal Gastrointestinal: Reports nausea and vomiting; Denies abdominal pain, constipation, diarrhea or melena Genitourinary Genitourinary ED: Denies dysuria or hematuria Musculoskeletal Musculoskeletal: Denies arthralgias or back pain Integumentary Denies abscess or Abrasions Psychiatric Psychiatric: Denies anxiety Endocrine Endocrinology: Denies cold intolerance Hematologic/Lymphatic Hematologic/Lymphatic: Reports none Allergic/Immunologic Allergic/Immunologic ED: Denies mouth swelling, tongue swelling or urticaria EXAM Physical Exam Narrative Exam Narrative: Well-appearing 64-year-old female. Vital signs stable afebrile. She does not look septic or toxic no distress. She is mildly dehydrated. Her pulse ox 97% on room air no hypoxia. H EENT exam pupils round reactive light. Mildly dry mucous members. Neck nontender no JVD. Lungs dry cough. No rales, rhonchi or wheezing. Equal symmetrical. Heart regular rate and rhythm rate about 85 no murmur. Chest wall ribs nontender. Abdomen soft nondistended normal bowel sounds without peritoneal signs. She had a prior abscess in her right upper quadrant of her abdomen was I indeed it is looking a lot better. There is still an open wound. Currently is not draining is not bleeding. The tissue is still indurated but looks much better. There is no surrounding cellulitis. Moving all 4 extremities. Nontender no edema. Normal travel insurance agent strength. Bilaterally. Normal dorsi plantarflexion. Back nontender. She is awake and alert. No focal motor deficits. Const Vital Signs: 03/08/24 17:58 03/08/24 18:59 03/08/24 20:00 Temperature 98.1 F 98.6 F 98.5 F Temperature Source Oral Oral Oral Pulse Rate 86 79 79 Respiratory Rate 15 18 18 Blood Pressure 163/72 H 128/85 H 137/72 H Blood Pressure Mean 102 99 93 Pulse Ox 97 97 96 Oxygen Delivery Method Room Air Room Air Room Air 03/08/24 21:00 03/08/24 22:00 Temperature 98 F 98.3 F Temperature Source Oral Oral Pulse Rate 78 85 Respiratory Rate 18 18 Blood Pressure 146/57 H 138/64 H Blood Pressure Mean 86 88 Pulse Ox 94 94 Oxygen Delivery Method Room Air Room Air Positive well nourished and well developed; Negative for cachectic, contractures or unkempt General Appearance ED: well developed and NAD; Negative for unkempt, cachectic, contractures, cyanotic, diaphoretic or pallor Nutritional Appearance: Negative for cachectic HEENT Reports dry mucous membranes Negative for trauma or tenderness Mouth ED: Yes dry mucous membranes Mouth: dry mucous membranes Eyes PERRL and EOMs intact bilaterally General Eye ED: Negative for pale conjunctiva Neck no lymphadenopathy, supple and no JVD Chest Wall inspection of chest normal and palpation of chest normal Chest: Negative for other Resp normal respiratory effort and clear to auscultation bilaterally Effort and Inspection: Negative for retractions Auscultation: Negative for rales, rhonchi, wheezes or diminished lung sounds Cardio regular rate, regular rhythm, S1 normal heart sound, S2 normal heart sound and no murmurs Palpation: Negative for palpable S3 or palpable S4 Rate: Negative for bradycardia or tachycardic Rhythm: Negative for abnormal rhythm GI normal to inspection, nondistended, normoactive bowel sounds, non-tender, non-distended and no masses Inspection: Negative for abdominal distention Auscultation: normoactive bowel sounds Palpation: soft; Negative for tender, guarding or rebound tenderness present Back/Spine no CVA tenderness General Back: Negative for CVA tenderness Cervical Spine: Negative for cervical spine tenderness Thoracic Spine / Upper Back: Negative for thoracic spinal tenderness or paraspinal muscle tenderness Lumbar Spine / Lower Back: Negative for lumbar spinal tenderness Extremity normal to inspection General Extremety ED: Negative for edema or tenderness General Extremity: Negative for edema Neuro oriented x3 and CN's II-XII intact bilaterally Sensorium / Orientation: alert; Negative for orientation impaired, lethargic or stuporous Motor Exam: strength 5/5 throughout Psych mental status grossly normal Appearance: Negative for unkempt Attitude: No agitated Mood & Affect: Negative for depressed, anxious or tearful Skin no rashes or lesions noted and No no wounds Skin Narrative: Well-healing right upper quadrant abdominal abscess that was I&D need 7 days ago. Much better. Indurated. No pus or bleeding. No fluctuance. General Skin Exam: Negative for jaundice or pallor Lesions: No lesion noted Rashes: No rashes noted Trauma: Negative for abrasion Wounds: wounds noted MDM MDM MDM Narrative Medical decision making narrative: 64-year-old female status post I&D of right upper quadrant abdominal wall abscess looks much better. After that was done the next several days she developed what she believes is a virus. With cough and nausea and vomiting. Clinically she looks mildly dehydrated. Should be treated with IV fluids and screening labs with chest x-ray and COVID and flu will be obtained. Repeat exam at 7:52 PM patient's had additional nausea vomiting so given additional dose of Zofran. We went over her test results. She now tells me she has had left flank pain that she never brought up during the initial history and physical. Will check a UA and a CT. Her abdomen is benign. There is no CVA tenderness. Will be given morphine for pain additional dose of Zofran. Repeat exam at 10:11 PM doing well. Abdomen benign. We have gone over her test results. We are just awaiting her CAT scan. She will receive another dose of Zofran. I suspect she will be discharged to home. I think most of her symptoms are from the COVID. CT abdomen pelvis shows a left distal ureteral 4 mm stone with hydronephrosis and hydroureter. This should pass. She will be treated with [place] for pain. Zofran for nausea. There is no signs of urinary tract infection. She also has COVID. Plenty of fluids and rest. History & Record Review Discussion w/independent historian: Patient Additional record(s) reviewed:: Prior inpatient record, Prior outpatient record, Prior ED visit and Prior labs Lab Data Attestation: I reviewed the patient's lab results. Lab results narrative: CBC unremarkable. White count of 6. H&H 14 and 42. Platelets 189. Electrolytes show a gap of 8. Normal BUN of 12 creatinine 1.41. Which is increased. Consistent with her dehydration. Glucose 192. Chest x-ray chronic changes no pneumonia. COVID-positive. Straight cath urinalysis shows no nitrates. No white or red cells. Rare bacteria. CT abdomen pelvis shows a left 5 mm ureteral calculus near the bladder. Labs: Laboratory Results - last 24 hr 03/08/24 03/08/24 18:20 20:20 WBC 6.5 RBC 4.75 Hgb 14.2 Hct 42.7 MCV 89.9 MCH 29.9 MCHC 33.3 RDW Std Deviation 47.2 H RDW Coeff of Rudi 14.3 Plt Count 189 MPV 8.9 Immature Gran % (Auto) 0.500 Neut % (Auto) 76.5 H Lymph % (Auto) 14.7 L Craig % (Auto) 8.1 Eos % (Auto) 0.0 Baso % (Auto) 0.2 Absolute Neuts (auto) 4.9 Absolute Lymphs (auto) 0.95 Nucleated RBC % 0 Sodium 140 Potassium 3.5 Chloride 112 H Carbon Dioxide 20.0 L Anion Gap 8 BUN 12 Creatinine 1.41 H Estim Creat Clear Calc 46.40 Est GFR (MDRD) Af Amer 48 L Est GFR (MDRD) Non-Af 40 L BUN/Creatinine Ratio 8.5 L Glucose 192 H Calcium 8.8 Urine Color Yellow Urine Clarity Clear Urine pH 6.0 Ur Specific [place] 1.015 Urine Protein 15 H Urine Glucose (UA) Normal Urine Ketones Negative Urine Occult Blood 50 H Urine Nitrite Negative Urine Bilirubin Negative Urine Urobilinogen Normal Ur Leukocyte Esterase 25 H Urine RBC 0-5 SEEN Urine WBC 0-5 SEEN Ur Squamous Epith Cells 5-10 SEEN Ur Transition Epith Cell 0-5 SEEN Urine Bacteria RARE Urine Mucus 0 SEEN Radiography Chest X-Ray - ED: 2 View, Read by ED Physician, Heart, Lungs, Mediastinum, Bony Structures, No Acute Disease and Chronic Changes Diagnostic Testing: Clinical Impression(s) from Imaging Studies Chest X-Ray 03/08/24 18:20 IMPRESSION: Degenerative changes, as described above. No demonstrated acute cardiopulmonary process. Electronically Signed: Lionel Christensen MD at 19:52 EST , Abdomen/Pelvis CT 03/08/24 19:56 IMPRESSION: Left distal ureteral stone with hydronephrosis. Electronically Signed: Lionel Christensen MD at 22:29 EST , Chest x-ray, 2 views, interpreted by myself shows no acute abnormality. Normal cardiac silhouette. No pneumonia. No infiltrates. Discharge Plan Triage Chief Complaint: Abscess ED Provider: Thad Alcaraz Dx/Rx/DC Orders Clinical Impression: COVID, Vomiting, Acute left flank pain, Calculus of distal left ureter Instructions: Human Coronaviruses, ED Urine Strainer, ED Vomiting (Adult), ED Kidney Stone with Pain Prescriptions: New ondansetron 4 mg tablet,disintegrating 4 mg PO Q6H PRN (Reason: nausea and vomiting) Qty: 7 0RF hydrocodone-acetaminophen 5-325 mg tablet 1 tab PO Q4H PRN PRN (Reason: Pain) 3 Days Qty: 12 0RF No Action lamotrigine 150 mg tablet 200 mg PO BID albuterol sulfate 1 PUFF inhaler 2 puff IH Q4H PRN PRN (Reason: wheezing/SOB) fluticasone furoate-vilanterol [Breo Ellipta] 200-25 mcg/dose blister with device 1 ea INHALATION DAILY Patient Comments: INHALE 1 (ONE) puff BY MOUTH EVERY DAY. rinse mouth after use. clonazepam 0.5 mg tablet 0.5 mg PO PRN cephalexin 500 mg capsule 500 mg PO Q6 Qty: 40 0RF Primary Care Provider: Houston Pascal Referrals: Abelino Melara MD [Med Staff - Active Staff] - 3-5 Days if not improving Houston Pascal MD [Primary Care Provider] - 3-5 Days if not improving Activity Restrictions/Additional Instructions: Zofran as needed for nausea. Plenty of fluids and rest. Increase your diet slowly as tolerated Follow-up with your doctor as needed return if worse. The abscess is healing nicely. If you can hold it down continue the Keflex, if not just watch it and it may get totally better without any further antibiotics. You also have a kidney stone on the left side down by your bladder which should passed about 5 mm. Strain your urine looking for the stone. [place] for pain. If your flank pain is not improving follow-up with your primary care physician or the urologist. Print Language: [place]
[2024-03-08] MEDS: 0.9% Normal Saline (1000mL) 1,000 ML 1000 ML IV (18:20)
[2024-03-08] MEDS: Ondansetron 4 MG/2 ML Vial IV ×3 (18:20→22:24)
--- NOTE | 2024-03-08 18:20 | RAD_ITS ---
STUDY: X-RAY CHEST REASON FOR EXAM: Female, 64 years old. Cough TECHNIQUE: PA and lateral views of the chest. COMPARISON: None. FINDINGS: There is mild left lower lung scarring or atelectasis. The remainder the lungs are clear. There is no demonstrated pleural abnormality. Normal size heart. Normal mediastinum and mariya. Normal visualized pulmonary arteries. There is atherosclerotic calcification of the aortic arch with tortuosity. There are diffuse degenerative changes of the visualized thoracic spine. Normal visualized ribs, clavicles, and shoulders. There is no demonstrated abnormality of the visualized soft tissue structures of the upper abdomen. RAD/Chest PA and Lateral IMPRESSION: Degenerative changes, as described above. No demonstrated acute cardiopulmonary process. Electronically Signed: Lionel Christensen MD at 19:52 EST ,
[2024-03-08 18:32] LABS: Absolute Lymphocyte Count 0.95 X10^3/uL (0.83-4.51); Absolute Neutrophil Count 4.9 X10^3/uL (2.0-7.7); Basophil# 0.01 X10^3/uL; Basophil% 0.2 % (0-1); Hematocrit 42.7 % (37-47); Hemoglobin 14.2 g/dL (12.0-15.0); Lymphocyte # 0.95 X10^3/ul (0.83-4.51); Lymphocyte % 14.7 % (19-41); Mean Corp Hgb Conc 33.3 g/dL (32-36); Mean Corpuscular Hgb 29.9 pg (27.0-32.0); Mean Corpuscular Volume 89.9 fL (81-99); Mean Platelet Vol. 8.9 fl (6.2-12.0); Monocyte# 0.52 X10^3/uL; Monocyte% 8.1 % (0-10); NRBC Flagged by Analyzer 0 % (0-5); Neutrophil # 4.94 X10^3/uL (2.7-7.7); Neutrophil % 76.5 % (47-70); Platelet Count 189 K/mm3 (150-450); RBC Distribution Width CV 14.3 % (11.6-14.6); RBC Distribution Width SD 47.2 fl (35.1-43.9); Red Blood Count 4.75 M/mm3 (4.2-5.4); White Blood Count 6.5 K/mm3 (4.4-11.0)
[2024-03-08 18:50] LABS: Anion Gap 8 (5-15); BUN 12 mg/dL (7-18); BUN/Creat Ratio 8.5 RATIO (10-20); Calcium,Total 8.8 mg/dL (8.5-10.1); Chloride 112 mmol/L (98-107); Creatinine, Serum 1.41 mg/dL (0.55-1.02); EST Glomerular Filtration Rate 40 mL/min (>60); Est Glom Filt Rate - Afr Amer 48 mL/min (>60); Glucose 192 mg/dL (74-106); Potassium 3.5 mmol/L (3.5-5.1); Sodium Level 140 mmol/L (136-145)
[2024-03-08 18:59] VITALS: BP 128/85; PULSE 79; RESP 18; TEMP 37; O2SAT 97
--- NOTE | 2024-03-08 19:56 | CT_ITS ---
STUDY: CT ABDOMEN AND PELVIS WITH CONTRAST REASON FOR EXAM: Female, 64 years old. Left flank pain RADIATION DOSAGE (If Supplied By Facility): CTDIvol = ( 18.74 ) mGy, DLP = ( 1199.41 ) mGycm TECHNIQUE: Transaxial images were obtained from the dome of the diaphragm to the symphysis pubis without oral contrast. IV 100mL Isovue-370 was administered. Sagittal and coronal images were reconstructed. Individualized dose optimization techniques were used for this CT. COMPARISON: None. FINDINGS: There is lower lobe atelectasis. The visualized portions of the heart are within normal limits. There is hepatomegaly with diffuse hepatic enlargement. Normal gallbladder and extrahepatic biliary system. Normal spleen. Normal pancreas. Normal bilateral adrenal glands. Normal right kidney. There is mild hydronephrosis and decreased function of the left kidney. There are 1.0 and 1.2 cm cysts. There is 0.5 cm left distal ureteral stone. Normal visualized stomach. Normal small intestine. Normal colon. The appendix is visualized and appears normal. There is atherosclerotic calcification of the abdominal aorta, without a demonstrated aneurysm. Normal inferior vena cava. Normal retroperitoneum. Normal urinary bladder. Normal visualized uterus. There is no free fluid in the abdomen or pelvis. Normal abdominal wall. There are diffuse degenerative changes of the visualized lumbar spine. CT/Abdomen/Pelvis W IV Cont ONLY IMPRESSION: Left distal ureteral stone with hydronephrosis. Electronically Signed: Lionel Christensen MD at 22:29 EST ,
[2024-03-08 20:00] VITALS: BP 137/72; PULSE 79; RESP 18; TEMP 36.9; O2SAT 96
[2024-03-08] MEDS: Morphine 4 MG/ML Syringe IV (20:06)
[2024-03-08 20:26] LABS: Mucous, Urine 0 SEEN /hpf (<or=2+)
[2024-03-08 20:29] LABS: Color, Urine Yellow (Yellow); Glucose, Dipstick Normal (Normal); Ketone-Dipstick Negative (Negative); Leukocyte Esterase-Dipstick 25 /ul (Negative); Nitrite-Dipstick Negative (Negative); Occult Blood-Urine 50 /ul (Negative); Protein-Dipstick 15 mg/dl (Negative); Specific Gravity, Urine 1.015 (1.002-1.030); Urine Bilirubin Dipstick Negative (Negative); Urine Clarity Clear (Clear); Urine Urobilinogen Normal (Normal)
[2024-03-08 20:57] LABS: Red Blood Cells-Urine 0-5 SEEN /hpf (0-5); Squamous Epithelial Cells - UA 5-10 SEEN /hpf (5-10); White Blood Cells 0-5 SEEN /hpf (0-5)
[2024-03-08 20:58] LABS: Bacteria RARE /hpf (None Seen); Transitional Epithelial - Ur 0-5 SEEN /hpf (0-5)
[2024-03-08 21:00] VITALS: BP 146/57; PULSE 78; RESP 18; TEMP 36.6; O2SAT 94
[2024-03-08 22:00] VITALS: BP 138/64; PULSE 85; RESP 18; TEMP 36.8; O2SAT 94
[2024-03-08 22:53] VITALS: BP 125/59; PULSE 95; RESP 19; O2SAT 97
== END 2024-03-08 22:54 | disposition home or self-care (01) ==
LOC: ED 18:35
PROVIDERS: Emergency Provider Emergency Medicine; PCP Family Medicine; Visit Provider Emergency Medicine
DX: U07.1 COVID-19 (principal); N13.2 Hydronephrosis with renal and ureteral calculous obstruction; J45.909 Unspecified asthma, uncomplicated; Z87.891 Personal history of nicotine dependence; Z79.51 Long term (current) use of inhaled steroids
CPT/HCPCS: 71046; 74177; 80048; 81001; 85025; 87631; 96361; 96374; 96375; 96376; 99285; P9612; Q9967; A4216; J2405

== ENCOUNTER → 2024-06-29 | Outpatient (CLI) | payer MEDICARE, MEDICAID, SELFPAY ==
--- NOTE | 2024-06-29 16:10 | RAD_ITS ---
PROCEDURE: LUMBAR SPINE 2 OR 3 VIEWS 06/29/2024 REASON FOR EXAM: PAIN TECHNIQUE: 2 view(s) of the lumbar spine COMPARISON: None. FINDINGS: Mild degenerative dextroscoliosis apex at L3. Exaggerated lumbar lordosis. Moderate diffuse spondylosis. No fracture or dislocation is seen. No lytic or blastic aggressive bone lesion is identified. RAD/Lumbar Spine 2 or 3 Views IMPRESSION: Spondylosis. Reading Location[facility] [id number]
--- NOTE | 2024-06-29 16:10 | RAD_ITS ---
PROCEDURE: HIPS B/L MIN 2 VIEWS W/ PELVIS 06/29/2024 REASON FOR EXAM: PAIN TECHNIQUE: 5 view(s) of the bilateral hip including the pelvis. COMPARISON: None FINDINGS: Bones: No acute fracture or dislocation. Joints: Normal alignment. Mild degenerative changes. Soft tissues: No soft tissue abnormality. Other: RAD/Hips B/L min 2 views w/ Pelvis IMPRESSION: DEGENERATIVE OSTEOARTHROSIS. NO ACUTE FINDINGS. Reading Location: [facility]
--- NOTE | 2024-06-29 16:10 | RAD_ITS ---
PROCEDURE: CERV SPINE 2 OR 3 VIEWS 06/29/2024 REASON FOR EXAM: PAIN TECHNIQUE: 4 views of the cervical spine. COMPARISON: None FINDINGS: Vertebrae: Cervical vertebral body heights are preserved. disc spaces: Multilevel narrowing of the intervertebral disc spaces with endplate osteophyte formation. Alignment: Straightening of the cervical alignment likely due to positioning. soft tissues: Unremarkable Other: RAD/Cerv Spine 2 or 3 Views IMPRESSION: MILD CERVICAL DEGENERATIVE CHANGES. No acute fracture. Disclaimer: Reading Location: [facility]
--- NOTE | 2024-06-29 16:10 | RAD_ITS ---
PROCEDURE: KNEE 3 VIEWS 06/29/2024 REASON FOR EXAM: PAIN TECHNIQUE: 3 view(s) of the LEFT knee COMPARISON: NONE. FINDINGS: Moderate tricompartmental changes of degenerative joint disease. No fracture or dislocation is seen. No lytic or blastic aggressive bone lesion is identified. RAD/Knee 3 Views IMPRESSION: Degenerative joint disease. Reading [facility]
--- NOTE | 2024-06-29 16:10 | RAD_ITS ---
PROCEDURE: KNEE 3 VIEWS 06/29/2024 REASON FOR EXAM: PAIN TECHNIQUE: 3 view(s) of the RIGHT knee COMPARISON: None. FINDINGS: Mild osteopenia. Moderate tricompartmental changes of degenerative joint disease. No fracture or dislocation is seen. No lytic or blastic aggressive bone lesion is identified. Prepatellar/infrapatellar soft tissue edema and swelling. RAD/Knee 3 Views IMPRESSION: Osteopenia. Degenerative joint disease. No radiographic evidence of an acute bone abnormality. Reading Location[facility]
== END | disposition home or self-care (01) ==
LOC: MTRAD 16:10
PROVIDERS: PCP Family Medicine; Referring Provider Family Medicine; Visit Provider Family Medicine
DX: M25.561 Pain in right knee (principal); M25.562 Pain in left knee; M54.50 Low back pain, unspecified; M54.2 Cervicalgia
CPT/HCPCS: 72040; 72100; 73521; 73562

== ENCOUNTER → 2024-08-05 | Outpatient (CLI) | payer MEDICARE, MEDICAID, SELFPAY ==
[2024-08-05 15:23] LABS: Absolute Lymphocyte Count 1.56 X10^3/uL (0.83-4.51); Absolute Neutrophil Count 4.4 X10^3/uL (2.0-7.7); Basophil# 0.04 X10^3/uL; Basophil% 0.6 % (0-1); Eosinophil# 0.12 X10^3/uL; Eosinophils% 1.8 % (0-5); Hematocrit 44.2 % (37-47); Lymphocyte # 1.56 X10^3/ul (0.83-4.51); Mean Corp Hgb Conc 33.9 g/dL (32-36); Mean Corpuscular Hgb 31.1 pg (27.0-32.0); Mean Corpuscular Volume 91.7 fL (81-99); Mean Platelet Vol. 9.3 fl (6.2-12.0); Monocyte# 0.36 X10^3/uL; Monocyte% 5.5 % (0-10); NRBC Flagged by Analyzer 0 % (0-5); Neutrophil # 4.37 X10^3/uL (2.7-7.7); Neutrophil % 67.5 % (47-70); Platelet Count 141 K/mm3 (150-450); RBC Distribution Width CV 13.4 % (11.6-14.6); RBC Distribution Width SD 45.1 fl (35.1-43.9); Red Blood Count 4.82 M/mm3 (4.2-5.4); White Blood Count 6.5 K/mm3 (4.4-11.0)
[2024-08-05 15:52] LABS: ALB/GLOB Ratio 1.7 RATIO (0.9-2.4); AST(SGOT) 44 U/L (<=31); Alanine Aminotransfer ALT/SGPT 59 U/L (<=34); Albumin, Serum 4.5 g/dL (3.4-4.8); Alkaline Phosphatase 147 U/L (35-104); Anion Gap 14 (5-15); BUN 13 mg/dL (4-19); BUN/Creat Ratio 15.4 RATIO (10-20); Calcium,Total 9.3 mg/dL (7.6-11.0); Carbon Dioxide 20.5 mmol/L (21.0-32.0); Chloride 105 mmol/L (98-108); Creatinine, Serum 0.83 mg/dL (0.70-1.20); EST Glomerular Filtration Rate 78 (>60); Globulin 2.6 g/dL (2.2-4.2); Glucose 237 mg/dL (70-99); Potassium 3.7 mmol/L (3.3-5.1); Protein, Total 7.1 g/dL (5.9-8.4); Sodium Level 139 mmol/L (133-145); Total Bilirubin 0.88 mg/dL (0.00-1.30)
[2024-08-05 15:54] LABS: Vitamin B12 405 pg/mL (180-914); Vitamin D,25 Hydroxy 8.5 ng/mL (30-100)
[2024-08-09 10:45] LABS: Hemoglobin A1c 8.3 % (<=5.6)
== END | disposition home or self-care (01) ==
LOC: MFPLAB 11:52
PROVIDERS: PCP Family Medicine; Referring Provider Family Medicine; Visit Provider Family Medicine
DX: R73.09 Other abnormal glucose (principal); R53.83 Other fatigue
CPT/HCPCS: 36415; 80053; 82306; 82607; 83036; 84439; 84443; 85025

== ENCOUNTER 2024-11-07 14:47 | Emergency (ER) | payer MEDICARE, MEDICAID, SELFPAY ==
[2024-11-07 14:47] VITALS: BP 124/61; PULSE 91; RESP 16; TEMP 36.5; O2SAT 99
[2024-11-07 15:56] VITALS: BMI 38.2
--- NOTE | 2024-11-07 16:17 | EKG12_ITS ---
Test Reason : DIZZINESS Blood Pressure : */* mmHG Vent. Rate : 79 BPM Atrial Rate : 79 BPM P-R Int : 192 ms QRS Dur : 92 ms QT Int : 452 ms P-R-T Axes : 86 46 35 degrees QTcB Int : 518 ms Normal sinus rhythm Low voltage QRS Borderline ECG Confirmed by PATTI NIÑO ([id number]), editorial manager RENNY ZACARIAS ([id number]) on 11/08/2024 1:05:02 PM Referred By: Confirmed By: PATTI NIÑO
[2024-11-07 16:46] LABS: Hematocrit 37.8 % (37-47); Hemoglobin 13.2 g/dL (12.0-15.0); Immature Granulocytes Count 0.030 X10^3/uL (0.0-0.0); Mean Corp Hgb Conc 34.9 g/dL (32-36); Mean Corpuscular Volume 92.2 fL (81-99); Mean Platelet Vol. 9.1 fl (6.2-12.0); NRBC Flagged by Analyzer 0 % (0-5); Platelet Count 134 K/mm3 (150-450); RBC Distribution Width CV 14.3 % (11.6-14.6); RBC Distribution Width SD 47.8 fl (35.1-43.9); Red Blood Count 4.10 M/mm3 (4.2-5.4); White Blood Count 5.7 K/mm3 (4.4-11.0)
[2024-11-07 16:47] VITALS: BP 140/69; PULSE 77; RESP 15; O2SAT 97
[2024-11-07 17:33] LABS: Anion Gap 14 (5-15); BUN 12 mg/dL (4-19); BUN/Creat Ratio 12.7 RATIO (10-20); Calcium,Total 9.1 mg/dL (7.6-11.0); Carbon Dioxide 19.4 mmol/L (21.0-32.0); Chloride 110 mmol/L (98-108); Estimated Creatinine Clearance 66.54 ml/min (50-250); Glucose 176 mg/dL (70-99); Potassium 3.7 mmol/L (3.3-5.1)
[2024-11-07 18:00] VITALS: BP 129/58; PULSE 76; RESP 18; O2SAT 98
--- NOTE | 2024-11-07 18:51 | CT_ITS ---
EXAM: CT BRAIN/HEAD WITHOUT CONTRAST; SPINE CERVICAL WITHOUT CONTRAST CLINICAL HISTORY: FALL, HIT HEAD, HEADACHE COMPARISON: None. TECHNIQUE: Noncontrast CT images of the head and cervical spine with multiplanar reconstructions. Dose reduction techniques were used including intermediate exposure control (AEC),iterative reconstruction technique, and/or mA and/or KV dose adjustments based on patient's size. FINDINGS: HEAD: No acute intracranial hemorrhage, extra-axial collection, mass effect or evidence of acute infarct. Ventricles and subarachnoid spaces are normal in size. Prior right orbital cataract surgery. Intact skull base and calvarium. Well-aerated paranasal sinuses and mastoid air cells. CERVICAL SPINE: No acute fracture or subluxation. Straightening of the cervical lordosis is likely positional and/or degenerative in nature. Mild multilevel spondylotic changes with varying degrees of disc space narrowing, anterior osteophytosis, uncovertebral spurring and hypertrophic facet arthropathy. No prevertebral soft tissue swelling. Atherosclerotic vascular calcifications. Enlarged heterogeneous thyroid gland. CT/Spine Cervical without Contras IMPRESSION: 1. No acute intracranial abnormality. 2. No acute cervical spine fracture or malalignment. Mild spondylotic changes. 3. Enlarged heterogeneous thyroid; may be further assessed with ultrasound. Reading Location: [id number]
--- NOTE | 2024-11-07 18:51 | CT_ITS ---
EXAM: CT BRAIN/HEAD WITHOUT CONTRAST; SPINE CERVICAL WITHOUT CONTRAST CLINICAL HISTORY: FALL, HIT HEAD, HEADACHE COMPARISON: None. TECHNIQUE: Noncontrast CT images of the head and cervical spine with multiplanar reconstructions. Dose reduction techniques were used including intermediate exposure control (AEC),iterative reconstruction technique, and/or mA and/or KV dose adjustments based on patient's size. FINDINGS: HEAD: No acute intracranial hemorrhage, extra-axial collection, mass effect or evidence of acute infarct. Ventricles and subarachnoid spaces are normal in size. Prior right orbital cataract surgery. Intact skull base and calvarium. Well-aerated paranasal sinuses and mastoid air cells. CERVICAL SPINE: No acute fracture or subluxation. Straightening of the cervical lordosis is likely positional and/or degenerative in nature. Mild multilevel spondylotic changes with varying degrees of disc space narrowing, anterior osteophytosis, uncovertebral spurring and hypertrophic facet arthropathy. No prevertebral soft tissue swelling. Atherosclerotic vascular calcifications. Enlarged heterogeneous thyroid gland. CT/Brain/Head without Contrast IMPRESSION: 1. No acute intracranial abnormality. 2. No acute cervical spine fracture or malalignment. Mild spondylotic changes. 3. Enlarged heterogeneous thyroid; may be further assessed with ultrasound. Reading Location: [id number]
--- NOTE | 2024-11-07 19:10 | RAD_ITS ---
PROCEDURE: SHOULDER MIN 2 VIEWS N/A REASON FOR EXAM: RIGHT SHOULDER PAIN, FALL 4 DAYS AGO TECHNIQUE: SHOULDER MIN 2 VIEWS Laterality: FINDINGS: No evidence of acute fracture or dislocation. Mild acromioclavicular degenerative changes. The glenohumeral joint spaces maintained. RAD/Shoulder min 2 Views IMPRESSION: No acute osseous abnormalities. Reading Location: [id number]
[2024-11-07 20:00] VITALS: PULSE 81; RESP 19; O2SAT 96
--- NOTE | 2024-11-07 20:42 | EX.ED.DYSGE1 ---
HPI History of Present Illness Chief Complaint: Dizziness Narrative Narrative: Patient is a 64-year-old female presenting to the emergency department for intermittent dizziness. Patient states that she has a history of vertigo in addition to a history as below. States that it has been a long time since she has had vertigo. Reports that about 4 days ago she was reaching something on her night stand and fell out of bed. She did not strike her head. She did not lose consciousness. She is not on any oral anticoagulation. States that since then she has had more frequent intermittent vertigo. Denies any diplopia, visual changes, neck pain, back pain. Denies any ringing in her ears or ear fullness. Denies chest pain, SOB, abdominal pain, nausea, vomiting, diarrhea. Denies vertigo at time of evaluation. [facility] Medical History Macular degeneration Breast lump Cataracts, bilateral Back problem Cyst of ovary Vision problems Seizures Polycystic ovaries High cholesterol Hearing problem Chronic headaches Asthma Arthritis Home Medications ?Medication ?Instructions ?Recorded ?Last Taken ?Type lamotrigine 150 mg tablet 200 mg PO BID Seizure 07/24/17 Unknown History albuterol sulfate 90 mcg/actuation 2 puff IH Q4H PRN PRN wheezing/SOB 12/14/19 Unknown History aerosol inhaler fluticasone furoate 200 1 ea inhalation DAILY 05/01/22 Unknown History mcg-vilanterol 25 mcg/dose inhalation powder (Breo Ellipta) cephalexin 500 mg capsule 500 mg PO Q6 #40 CAPSULES 03/01/24 Unknown Rx clonazepam 0.5 mg tablet 0.5 mg PO PRN 03/08/24 Unknown History hydrocodone-acetaminophen 5-325mg 1 tab PO Q4H PRN PRN Pain 3 days 03/08/24 Unknown Rx 5mg-325mg #12 TABLETS ondansetron 4 mg disintegrating 4 mg PO Q6H PRN nausea and 03/08/24 Unknown Rx tablet vomiting #7 tabs meclizine 25 mg tablet 25 mg PO BID PRN dizziness #14 tabs 11/07/24 Unknown Rx Allergy/AdvReac Type Severity Reaction Status Date / Time No Known Allergies Allergy Verified 11/07/24 14:51 Family History Brother Heart disease Son Ulcer Social History Smoking Status: Former smoker how long ago did patient quit smokin, 0.5ppd second hand exposure: Yes alcohol intake: current alcohol intake frequency: holidays/special occasions only substance use type: does not use what type of physical activity do you participate in: none ROS ROS ED ROS Narrative see HPI EXAM Physical Exam Narrative Exam Narrative: Vital signs: Reviewed General: Alert and orientedx3. No acute distress HEENT: Head is normocephalic and atraumatic, sinuses nontender, pupils equal round and reactive. Nares are patent. Oropharynx and throat exams normal. Neck: Supple without lymphadenopathy nontender. No midline cervical spinal tenderness to palpation. No step-offs or deformities. Cardiovascular: Regular rate and rhythm, no murmurs. No rubs or gallops. Normal S1 and S2 Respiratory: Clear to auscultation bilaterally. No wheezes, rales, rhonchi Chest: Chest wall stable, atraumatic nontender to palpation. No bruising or crepitus Abdominal: Soft and nontender. Normal bowel sounds. No guarding or rebound. Nonsurgical abdomen Extremities: Some mild tenderness to palpation of the posterior portion of the proximal humerus. No obvious deformity. Otherwise extremities are atraumatic and nontender to palpation with normal active range of motion. No bruising. Normal range of motion. Normal sensation. No midline thoracic or lumbar spinal tenderness to palpation. No step-offs or deformities. Skin: No rash or redness. Neurological: Cranial nerves II through XII are grossly intact. Normal strength and sensation. Normal cerebellar function. Normal finger to nose. The rest of the physical exam is unremarkable Const Vital Signs: 11/07/24 14:47 11/07/24 16:47 11/07/24 18:00 Temperature 97.7 F L Temperature Source Temporal Pulse Rate 91 77 76 Respiratory Rate 16 15 18 Blood Pressure 124/61 H 140/69 H 129/58 H Blood Pressure Mean 82 92 81 Pulse Ox 99 97 98 Oxygen Delivery Method Room Air Room Air Room Air 11/07/24 20:00 11/07/24 20:52 Temperature 97.9 F Temperature Source Pulse Rate 81 68 Respiratory Rate 19 H 14 Blood Pressure 135/61 H Blood Pressure Mean 85 Pulse Ox 96 98 Oxygen Delivery Method Room Air MDM MDM MDM Narrative Medical decision making narrative: Patient is a 64-year-old female presenting to the emergency department for dizziness. Patient was seen and examined. Vitals are stable. Patient resting in bed comfortably in no acute distress. Neurologic exam is unremarkable, normal [id number] and [id number] testing. Given the patient's fall with head trauma and age we will obtain CT of the brain and cervical spine. CT brain shows no acute intracranial abnormality. CT cervical spine with no acute cervical spine fracture or malalignment. Right shoulder x-ray negative for any fracture or dislocation. CBC with no leukocytosis and a normal hemoglobin. BMP with no significant abnormalities. Glucose of 176. EKG shows NSR, no dysrhythmia. No ischemic changes. Patient was given a dose of meclizine here in the ED. Again she was not dizzy while she was here. Her dizziness is not triggered by head movements on exam. I do not suspect a posterior cerebellar stroke given the dizziness is intermittent. Patient states that she ambulates with a walker at home. Ambulation attempted by nursing staff, patient did well with her walker. Patient was encouraged to follow-up with her primary care doctor soon as possible and return to the ED with any new or worsening symptoms. Patient discharged from the Emergency Department. I do not feel that the patient's evaluation reveals any acute reason for admission at this time. I instructed them to either follow-up with their primary care physician or promptly return to the Emergency Department for reevaluation should symptoms worsen or new symptoms develop. I explained what symptoms would indicate the need to return to the emergency department. Shared decision making was used. The patient voiced understanding of the treatment plan and is agreeable with it. Clinical impression Dizziness Head trauma History & Record Review Discussion w/independent historian: Patient and Family Lab Data Attestation: I reviewed the patient's lab results. Labs: Laboratory Results - last 24 hr 11/07/24 16:32 WBC 5.7 RBC 4.10 L Hgb 13.2 Hct 37.8 MCV 92.2 MCH 32.2 H MCHC 34.9 RDW Std Deviation 47.8 H RDW Coeff of Rudi 14.3 Plt Count 134 L MPV 9.1 Immature Gran % (Auto) 0.500 Neut % (Auto) 79.3 H Lymph % (Auto) 13.9 L [place] % (Auto) 4.9 Eos % (Auto) 0.9 Baso % (Auto) 0.5 Absolute Neuts (auto) 4.5 Absolute Lymphs (auto) 0.79 L Nucleated RBC % 0 Sodium 144 Potassium 3.7 Chloride 110 H Carbon Dioxide 19.4 L Anion Gap 14 BUN 12 Creatinine 0.94 Estim Creat Clear Calc 66.54 Est GFR (MDRD) Non-Af 68 BUN/Creatinine Ratio 12.7 Glucose 176 H Calcium 9.1 Radiography Diagnostic Testing: Clinical Impression(s) from Imaging Studies Brain CT 11/07/24 18:51 IMPRESSION: 1. No acute intracranial abnormality. 2. No acute cervical spine fracture or malalignment. Mild spondylotic changes. 3. Enlarged heterogeneous thyroid; may be further assessed with ultrasound. Reading Location: [facility] Cervical Spine CT 11/07/24 18:51 IMPRESSION: 1. No acute intracranial abnormality. 2. No acute cervical spine fracture or malalignment. Mild spondylotic changes. 3. Enlarged heterogeneous thyroid; may be further assessed with ultrasound. Reading Location: [facility] Shoulder X-Ray 11/07/24 19:10 IMPRESSION: No acute osseous abnormalities. Reading Location: [facility] Discharge Plan Triage Chief Complaint: Dizziness ED Provider: Dulce Yung Dx/Rx/DC Orders Clinical Impression: Dizziness Instructions: ED Dizziness, Uncertain Cause Prescriptions: New meclizine 25 mg tablet 25 mg PO BID PRN (Reason: dizziness) Qty: 14 0RF No Action lamotrigine 150 mg tablet 200 mg PO BID albuterol sulfate 1 PUFF inhaler 2 puff IH Q4H PRN PRN (Reason: wheezing/SOB) fluticasone furoate-vilanterol [Breo Ellipta] 200-25 mcg/dose blister with device 1 ea INHALATION DAILY Patient Comments: INHALE 1 (ONE) puff BY MOUTH EVERY DAY. rinse mouth after use. clonazepam 0.5 mg tablet 0.5 mg PO PRN ondansetron 4 mg tablet,disintegrating 4 mg PO Q6H PRN (Reason: nausea and vomiting) Qty: 7 0RF hydrocodone-acetaminophen 5-325 mg tablet 1 tab PO Q4H PRN PRN (Reason: Pain) 3 Days Qty: 12 0RF cephalexin 500 mg capsule 500 mg PO Q6 Qty: 40 0RF Primary Care Provider: Houston Pascal Referrals: Houston Pascla MD [Primary Care Provider] - 2 Days Activity Restrictions/Additional Instructions: Take the meclizine every 8 hours as needed. Your evaluation in the Emergency Department did not reveal any acute reason for admission. However, I want to emphasize that you may be early in the course of a disease process or illness even if it is not present. For this reason you should follow-up within 24 hours for reevaluation with either your primary care physician or if necessary back here in the Emergency Department. You should return to the Emergency Department immediately if your symptoms worsen or new symptoms develop. Print Language: Kiswahili Disposition Disposition: Home, Self Care Discharge Date/Time: 11/07/24 21:04
[2024-11-07 20:52] VITALS: BP 135/61; PULSE 68; RESP 14; TEMP 36.6; O2SAT 98
== END 2024-11-07 21:04 | disposition home or self-care (01) ==
PROVIDERS: Emergency Provider Student in an Organized Health Care Education/Training Program; PCP Family Medicine; Visit Provider Student in an Organized Health Care Education/Training Program
DX: R42 Dizziness and giddiness (principal); S09.90XA Unspecified injury of head, initial encounter; W06.XXXA Fall from bed, initial encounter; E78.00 Pure hypercholesterolemia, unspecified; J45.909 Unspecified asthma, uncomplicated; Z79.899 Other long term (current) drug therapy; Z87.891 Personal history of nicotine dependence
CPT/HCPCS: 70450; 72125; 73030; 80048; 85025; 93005; 99284; A4216

== ENCOUNTER → 2024-12-28 | Outpatient (CLI) | payer MEDICARE, MEDICAID, SELFPAY ==
[2024-12-28 13:59] LABS: Red Blood Cells-Urine 0 SEEN /hpf (0-5)
[2024-12-28 18:13] LABS: Hematocrit 39.1 % (37-47); Hemoglobin 13.5 g/dL (12.0-15.0); Immature Granulocytes Count 0.030 X10^3/uL (0.0-0.0); Mean Corp Hgb Conc 34.5 g/dL (32-36); Mean Corpuscular Volume 89.9 fL (81-99); Mean Platelet Vol. 9.5 fl (6.2-12.0); NRBC Flagged by Analyzer 0 % (0-5); Platelet Count 153 K/mm3 (150-450); RBC Distribution Width CV 13.6 % (11.6-14.6); RBC Distribution Width SD 44.7 fl (35.1-43.9); Red Blood Count 4.35 M/mm3 (4.2-5.4); White Blood Count 6.9 K/mm3 (4.4-11.0)
[2024-12-28 18:41] LABS: Creatinine, Urine (random) 159.00 mg/dL (28.00-217.00); Microalbumin,Random Urine < 12.0 mg/L (<20 mg/L); Protein, Urine (Random) 27.3 mg/dL (0.0-12.0); Protein:Creat Ratio 172 mg/g CRE (0-200)
[2024-12-28 18:47] LABS: AST(SGOT) 23 U/L (<=31); Alanine Aminotransfer ALT/SGPT 26 U/L (<=34); Albumin, Serum 4.3 g/dL (3.4-4.8); Alkaline Phosphatase 96 U/L (35-104); Anion Gap 11 (5-15); BUN 15 mg/dL (4-19); BUN/Creat Ratio 17.6 RATIO (10-20); Calcium,Total 10.0 mg/dL (7.6-11.0); Carbon Dioxide 24.2 mmol/L (21.0-32.0); Chloride 106 mmol/L (98-108); Cholesterol 158 mg/dL (<=200); Globulin 2.7 g/dL (2.2-4.2); Glucose 238 mg/dL (70-99); Low Density Lipoprotein Calc. 65 mg/dL; Potassium 3.8 mmol/L (3.3-5.1); Triglycerides 196 mg/dL; Very Low Density Lipoprotein 39 mg/dL (5-40); Vitamin D,25 Hydroxy 39.6 ng/mL (30-100); cholesterol:hdl ratio screen 2.96
[2024-12-28 19:11] LABS: Color, Urine Yellow (Yellow); Glucose, Dipstick Normal (Normal); Ketone-Dipstick Negative (Negative); Leukocyte Esterase-Dipstick 500 /ul (Negative); Nitrite-Dipstick Negative (Negative); Occult Blood-Urine 10 /ul (Negative); Protein-Dipstick 15 mg/dl (Negative); Specific Gravity, Urine 1.025 (1.002-1.030); Urine Bilirubin Dipstick Negative (Negative)
[2024-12-28 20:17] LABS: Calcium Oxalate Crystals Ur 2+ /hpf (<or=2+); Mucous, Urine 1+ /hpf (<or=2+); Squamous Epithelial Cells - UA 10-25 SEEN /hpf (5-10)
== END | disposition home or self-care (01) ==
LOC: MTLAB 13:53
PROVIDERS: PCP Family Medicine; Referring Provider Family Medicine; Visit Provider Family Medicine
DX: E11.8 Type 2 diabetes mellitus with unspecified complications (principal); E55.9 Vitamin D deficiency, unspecified; R82.81 Pyuria
CPT/HCPCS: 80053; 80061; 81001; 82043; 82306; 82570; 83036; 84156; 85025; 87086; 87088